=== PATIENT | male | born 1960 | race Caucasian/White ===

== ENCOUNTER 2016-11-03 12:23 | Inpatient (IN) ==
--- NOTE | 2016-11-03 13:30 | Emergency Department Note ---
Arrival - Arrival Chief Complaint: Non-Specific Stated Complaint: blood in urine &severe mouth pain ED Nursing Triage Note: pt to triage via wc with c/o having multi c/os. 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 onset of the hematuria was yesterday. just found out that he has HIV he was called over the phone from the health department and was told it was full blown but hasnt had an official report yet given to him. Mode of Arrival: Wheelchair Time Seen by Provider: 11/03/16 13:23 - History of Present Illness HPI Narrative: Patient presents to the ER with complaints of sores to mouth, blood in urine, headache, and chills. This patient was just diagnosed with "full blown HIV" two weeks ago. The family states they do not know his CD4 count and he was not given any antiviral medication. Family states he has progressively gotten sicker over the past week. PCP- Dr. Scales PMHx: Hep C, CVA Allergies/Adverse Reactions: Allergies Allergy/AdvReac Type Severity Reaction Status Date / Time No Known Allergies Allergy Verified 11/03/16 12:35 Home Medications: Home Medications Medication Instructions Recorded Confirmed Type Fluconazole Tab [Diflucan Tab] 100 mg PO DAILY #5 tablet 11/06/16 11/08/16 Rx HYDROcodone/ACETAMIN 10-325 [[place] 1 tablet PO Q4H PRN #30 tablet 11/06/1611/08 Rx 10-325] Lidocaine 2% Viscous [Xylocaine 2% 15 ml SWISH/SWAL Q6H #60 ml 11/06/16 Rx Viscous] Lisinopril 10 mg PO DAILY #30 tablet 11/06/16 11/08/16 Rx Nystatin [Nystatin Oral Susp] 200,000 unit SWISH/SWAL QID #60 ml 11/06/16 Rx Sulfameth/Trimeth 800-160 Tab 1 tablet PO DAILY #30 tablet 11/06/16 11/08/16 Rx [Bactrim DS Tab] Review of System - Review of System Review of Systems: General: reports chills, states sure if any fever, denies sweats, reports fatigue Skin: denies lesions, open wounds, rashes, skin/hair/nail changes Head: denies trauma, reports headache ENT: denies blurry vision, vision changes, nasal drainage, congestion, reports sore throat and ear pain/ringing Chest: denies chestpain, palpitations, or edema Lungs: denies wheezing, cough, SOB, sputum production, hemoptysis GI: denies nausea, vomiting, diarrhea, constipation, intigestion, or abdominal pain : denies frequency, dyuria, hesitancy, urgency, reports hematuria and incontinence Musculoskeletal: denies muscle weakness, pain, joint stiffness, joint swelling Neuro: denies numbness, tingling, tremors, unilateral weakness, seizures, syncope Medical,Surgical,& Family Hx - Medical History Cardio: History of: Hypertension Neurology: History of: Cerebrovascular Accident - Surgical History Orthopedic Surgeries: Surgical HX of;: Total Hip Replacement (3 left hip replacements) - Social History Smoking Status: Current every day smoker Frequency of Alcohol Use: None Type of Drug Use: None Exam Physical Examination: General [General appearance: alert, in no apparent distress] - Head Head exam: Present: atraumatic, normocephalic, normal inspection - Eye Eye exam: Present: normal appearance, PERRL, EOMI - ENT ENT exam: Present: abnormal, mouth and oropharynx covered in thrush, mucous membranes moist - Neck Neck exam: Present: normal inspection, full ROM, trachea midline - Chest Chest inspection: Present: normal inspection, symmetric chest wall rise - Respiratory Respiratory exam: Present: coarse lung sounds bilaterally - Cardiovascular Cardiovascular exam: Present: regular rate, normal rhythm, normal heart sounds - Abdominal Exam Abdominal exam: Present: soft, normal bowel sounds - Rectal Exam Rectal exam: Present: deferred - Extremities Exam Extremities exam: Present: normal inspection, full ROM, normal capillary refill - Back Exam Back exam: Present: normal inspection, full ROM - Neurological Exam Neurological exam: Present: alert, oriented X3, CN II-XII intact - Psychiatric Psychiatric exam: Present: normal affect, normal mood - Skin Skin exam: Present: warm, dry, intact, normal color, Vital Signs: Vital Signs Temperature 97.1 F L 11/06/16 11:19 Pulse Rate 75 11/06/16 11:19 Respiratory Rate 18 11/06/16 11:19 Blood Pressure 129/63 11/06/16 11:19 O2 Sat by Pulse Oximetry 93 L 11/06/16 11:19 Course - Reevaluation(s) Time: 15:25 (Spoke with family about possible admission. Voiced their understanding. Paged Hospitalist at [phone]) Time: 15:35 (Spoke with Hospitalist family and consumer sciences professor... they will come see patient ) Time: 15:52 (Hospitalist at ) Results - Labs CBC & BMP: 11/06/16 05:15 11/06/16 05:15 Labs: Laboratory Tests 11/03/16 13:47 Sodium 123 L Potassium 4.9 Chloride 87 L Carbon Dioxide 28 Anion Gap 12.9 BUN 15 Creatinine 0.60 L GFR Calculation 100 BUN/Creatinine Ratio 25.00 H Glucose 86 Calculated Osmolality 246.8 L Lactic Acid 0.9 Calcium 8.1 L Total Bilirubin < 0.39 AST 87 H ALT 42 Alkaline Phosphatase 117 Total Protein 7.1 Albumin 2.5 L Globulin 4.6 H Albumin/Globulin Ratio 0.5 L Laboratory Tests 11/03/16 12:47 Urine Color Yellow Urine Appearance Cloudy Urine pH 7.0 Ur Specific Fraser 1.012 Urine Protein 30 Urine Glucose (UA) Negative Urine Ketones Negative Urine Blood Moderate Urine Nitrate Negative Urine Bilirubin Negative Urine Urobilinogen < 2.0 H Urine Leukocytes Negative Urine RBC 92 Urine WBC 2 Urine Mucus Occasional Ur Culture Indicated? Not indicated Laboratory Tests 11/03/16 13:26 WBC 2.0 L RBC 3.17 L Hgb 9.8 L Hct 27.8 L MCV 87.7 MCH 31 MCHC 35.3 RDW 14.7 Plt Count 80 L MPV 10.2 Neut % (Auto) 69.5 Lymph % (Auto) 14.7 L Sullivan % (Auto) 10.8 Eos % (Auto) 2.0 Baso % (Auto) 0.5 Neut # (Auto) 1.4 Lymph # (Auto) 0.3 L Sullivan # (Auto) 0.2 Eos # (Auto) 0.0 Baso # (Auto) 0.0 Total Counted Cancelled Immature Gran % 2.5 Nucleated RBC % 0.0 Immature Gran # 0.05 - Impressions CT head without contrast Comparison exam: November 16, [address] sections were obtained through the head without IV contrast. This CT exam was performed using one or more the following dose reduction techniques: Automated exposure control, adjustment of the MA and/or KV according to patient size, or use of iterative reconstruction technique. The ventricles are midline in position without evidence of hydrocephalus. There is no mass or parenchymal hemorrhage. There is a 4 mm low-density in the mid left putamen compatible with lacunar ischemia which may be subacute or older. There is no gross CT evidence of acute cortical stroke. There is no extra-axial hematoma. There is a small amount mastoid effusion on the right. There is no acute abnormality of the calvarium. There is mild distal carotid artery calcification. Impression: No definite acute intracranial process. Small lacunar infarction left putamen which may be subacute or older, but which was not present in 2013 Small right mastoid effusion PROCEDURE INTERPRETED AT [facility] DEPARTMENT OF RADIOLOGY Final Report Signed by: Dr. Radha Gallegos XR chest 2V Indication: Fever Comparison: Chest x-ray dated September 10, 2011 Technique: Frontal and lateral views of the chest. Findings: Heart size within normal limits. Patchy left perihilar and suprahilar opacities may reflect early consolidative process such as pneumonia. Recommend follow-up imaging to document resolution and exclude underlying neoplasm. Visualized osseous and surrounding soft tissue structures appear grossly unchanged. IMPRESSION: As above. PROCEDURE INTERPRETED AT [facility] DEPARTMENT OF RADIOLOGY Final Report Signed by: Dr Hiro Pastor - Diagnostic Findings Procedure: CT: report reviewed by me (See Impression ) Disposition Clinical Impression: HIV (human immunodeficiency virus infection), Oral candidiasis, Abnormal chest x-ray Disposition: Still a Patient Condition: Stable New Prescriptions: Rx's Medication Instructions Recorded Fluconazole Tab [Diflucan Tab] 100 mg PO DAILY #5 tablet 11/06/16 HYDROcodone/ACETAMIN 10-325 [[place] 1 tablet PO Q4H PRN #30 tablet 11/06/16 10-325] Lidocaine 2% Viscous [Xylocaine 2% 15 ml SWISH/SWAL Q6H #60 ml 11/06/16 Viscous] Lisinopril 10 mg PO DAILY #30 tablet 11/06/16 Nystatin [Nystatin Oral Susp] 200,000 unit SWISH/SWAL QID #60 ml 11/06/16 Sulfameth/Trimeth 800-160 Tab 1 tablet PO DAILY #30 tablet 11/06/16 [Bactrim DS Tab]
--- NOTE | 2016-11-03 13:50 | CT Report ---
History: Headache. Immunocompromised. History of CVA Date: 11/03/2016 Study: CT head without contrast Comparison exam: November 16, [address] sections were obtained through the head without IV contrast. This CT exam was performed using one or more the following dose reduction techniques: Automated exposure control, adjustment of the MA and/or KV according to patient size, or use of iterative reconstruction technique. The ventricles are midline in position without evidence of hydrocephalus. There is no mass or parenchymal hemorrhage. There is a 4 mm low-density in the mid left putamen compatible with lacunar ischemia which may be subacute or older. There is no gross CT evidence of acute cortical stroke. There is no extra-axial hematoma. There is a small amount mastoid effusion on the right. There is no acute abnormality of the calvarium. There is mild distal carotid artery calcification. Impression: No definite acute intracranial process. Small lacunar infarction left putamen which may be subacute or older, but which was not present in 2013 Small right mastoid effusion PROCEDURE INTERPRETED AT [facility] DEPARTMENT OF RADIOLOGY Final Report Signed by: Dr. Radha Gallegos
[2016-11-03 14:25] LABS: Apearance,Urine CLOUDY (Clear); Bilirubin,Urine Negative (Negative); Blood, Urine Moderate mg/dL (Negative); Glucose,Urine (UA) Negative (Negative); Ketones,Urine Negative (Negative); Mucus,Urine Occasional /LPF (Occasional); Nitrite,Urine Negative (Negative); Protein,Urine 30 MG/DL; RBC,Urine 92 /HPF (0-4); Urine Color Yellow (Yellow); Urine Specific Gravity 1.012 (1.001-1.035); Urine Urobilinogen < 2.0 EU/DL (0.2-1.0); WBC,Urine 2 /HPF (0-6)
[2016-11-03 14:28] LABS: Alanine Aminotransferase 42 U/L (16-61); Albumin 2.5 G/DL (3.4-5.0); Alkaline Phosphatase 117 U/L (45-117); Aspartate Amino Transferase 87 U/L (0-37); Bilirubin,Total < 0.39 MG/DL (0.2-1.0); Blood Urea Nitrogen 15 MG/DL (7-18); Calcium 8.1 MG/DL (8.5-10.1); Glucose 86 MG/DL (74-106); Lactic Acid 0.9 MMOL/L (0.4-2.0); Osmolality,Calculated 246.8 MOS/KG (273-304); Potassium 4.9 MMOL/L (3.5-5.1); Sodium 123 MMOL/L (136-145); Total Protein 7.1 G/DL (6.4-8.3)
[2016-11-03] MEDS ORDERED: LIDOCAINE 2% VISCOUS 100 ML BOTTLE SWISH/SWAL STA (14:34)
[2016-11-03] MEDS ORDERED: NYSTATIN 500,000 UNIT/5 ML UDCUP SWISH/SWAL STA (14:34)
[2016-11-03] MEDS ORDERED: FLUCONAZOLE INJ 400 MG in PREMIX 1 EACH IV ONE (14:42)
[2016-11-03 14:44] LABS: Basophils % 0.5 % (0.0-0.8); Hematocrit 27.8 VOL% (42.0-52.0); Hemoglobin 9.8 GM/DL (14.0-18.0); Immature Granulocytes % 2.5 %; Immature Granulocytes Absolute 0.05 #; Lymphocytes # 0.3 10*3/uL (1.4-4.0); Lymphocytes % 14.7 % (21.2-54.2); Mean Corpuscular HGB Conc 35.3 GM/DL (32-36); Mean Corpuscular Hemoglobin 31 PG (27-34); Mean Corpuscular Volume 87.7 FL (87-102); Mean Platelet Volume 10.2 FL (9.6-12.0); Monocytes # 0.2 10*3/uL (0.11-0.8); Monocytes % 10.8 % (1.7-12.7); Neutrophils # 1.4 10*3/uL (1.4-7.4); Neutrophils % 69.5 % (38.7-73.9); Platelet Count 80 T/CUMM (130-400); Red Blood Count 3.17 MC/CUMM (3.8-5.5); Red Cell Distribution Width 14.7 % (9.3-17.3)
[2016-11-03] MEDS ORDERED: NYSTATIN 500,000 UNIT/5 ML UDCUP ONE (14:46)
[2016-11-03] MEDS ORDERED: LIDOCAINE 2% VISCOUS 100 ML BOTTLE ONE (14:47)
--- NOTE | 2016-11-03 15:11 | XRay Report ---
XR chest 2V Indication: Fever Comparison: Chest x-ray dated September 10, 2011 Technique: Frontal and lateral views of the chest. Findings: Heart size within normal limits. Patchy left perihilar and suprahilar opacities may reflect early consolidative process such as pneumonia. Recommend follow-up imaging to document resolution and exclude underlying neoplasm. Visualized osseous and surrounding soft tissue structures appear grossly unchanged. IMPRESSION: As above. PROCEDURE INTERPRETED AT [facility] DEPARTMENT OF RADIOLOGY Final Report Signed by: Dr Hiro Pastor
[2016-11-03] MEDS ORDERED: ALBUTEROL/IPRATROPIUM 3 ML NEB RESP TX PRN (16:14)
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
[2016-11-03 17:05] LABS: ABG Base Excess 4.5 MMOL/L (-2.5-2.5); ABG HCO3 28.4 MMOL/L (20-26); ABG PCO2 39.7 MM HG (35-48); ABG PH 7.473 (7.35-7.45); ABG PO2 77.5 MM HG (80-95); ABG TCO2 29.7 MMOL/L (23-27); Allen Test Positive; Pt O2 Delivery Device Room Air
[2016-11-03] MEDS: SODIUM CHLORIDE 0.9% 1,000 ML IV SCH (17:29)
[2016-11-03] MEDS: SULFAMETH/TRIMETH INJ 200 MG in DEXTROSE 5% 250 ML IV SCH ×2 (17:29→23:05)
[2016-11-03] MEDS: amLODIPine 5 MG TABLET PO SCH (17:30)
[2016-11-03] MEDS: PIPERACILLIN/TAZOBACTAM 3,375 MG in SODIUM CHLORIDE 0.9% 100 ML IV SCH (20:26)
[2016-11-03 22:19] LABS: Hepatitis A Ab IgM Result Negative (Negative); Hepatitis B Core IgM Quant 0.14 Index; Hepatitis B Core IgM Result Negative (Negative)
[2016-11-04 03:15] LABS: Eosinophils # 0.1 10*3/uL (0.0-0.87); Eosinophils % 3.2 % (0.00-10.9); Hematocrit 26.6 VOL% (42.0-52.0); Hemoglobin 9.5 GM/DL (14.0-18.0); Immature Granulocytes % 1.6 %; Immature Granulocytes Absolute 0.04 #; Lymphocytes # 0.3 10*3/uL (1.4-4.0); Lymphocytes % 10.8 % (21.2-54.2); Mean Corpuscular HGB Conc 35.7 GM/DL (32-36); Mean Corpuscular Hemoglobin 31 PG (27-34); Mean Corpuscular Volume 86.4 FL (87-102); Mean Platelet Volume 11.1 FL (9.6-12.0); Monocytes # 0.2 10*3/uL (0.11-0.8); Monocytes % 8.4 % (1.7-12.7); Neutrophils # 1.9 10*3/uL (1.4-7.4); Red Blood Count 3.08 MC/CUMM (3.8-5.5); Red Cell Distribution Width 14.8 % (9.3-17.3); White Blood Count 2.5 T/CUMM (4-12)
[2016-11-04] MEDS: PIPERACILLIN/TAZOBACTAM 3,375 MG in SODIUM CHLORIDE 0.9% 100 ML IV SCH ×2 (03:19→13:26)
[2016-11-04 03:20] LABS: Platelet Count 92 T/CUMM (130-400)
[2016-11-04] MEDS: SULFAMETH/TRIMETH INJ 200 MG in DEXTROSE 5% 250 ML IV SCH ×2 (03:37→09:14)
[2016-11-04 03:48] LABS: Albumin 2.1 G/DL (3.4-5.0); Bilirubin,Total 0.7 MG/DL (0.2-1.0); Calcium 7.8 MG/DL (8.5-10.1); Osmolality,Calculated 243.9 MOS/KG (273-304); Potassium 4.4 MMOL/L (3.5-5.1); Total Protein 5.9 G/DL (6.4-8.3)
[2016-11-04 04:09] LABS: Band Neutrophils 2 % (0-10); Eosinophils 4 % (0-10); Lymphocytes 4 % (20-55); Metamyelocytes 2 %; Myelocytes 1 %; Segmented Neutrophils 76 % (50-85); Total Cells Counted 100
[2016-11-04 04:15] LABS: Anisocytosis 2+; Microcytosis 2+
[2016-11-04 04:16] LABS: Hypochromasia 1+; Platelet Estimate Decreased
[2016-11-04 04:36] LABS: Hepatitis C Virus Ab Quant > 11.00 Index; Hepatitis C Virus Ab Result Positive (Negative)
[2016-11-04] MEDS: SODIUM CHLORIDE 0.9% 1,000 ML IV SCH ×3 (05:06→19:35)
[2016-11-04 05:41] LABS: Hepatitis C Virus Ab Quant > 11.00 Index; Hepatitis C Virus Ab Result Positive (Negative)
[2016-11-04 05:42] LABS: Hepatitis A Ab IgM Quant 0.04 Index
[2016-11-04] MEDS: ACETAMINOPHEN 325 MG TABLET PO PRN (06:51)
--- NOTE | 2016-11-04 08:45 | Post Interventional Procedure ---
Pre-op diagnosis: HIV, oral jeff, no PIV access Post-op diagnosis: same Procedure: PICC LUE Flouroscopy: 0.1 min Radiologist: Nathan Norwood Anesthesia: local Specimens: none sent Estimated blood loss: none Complications: none Condition: stable Assessment and Plan - Time spent with patient Time spent with patient: Less than 30 minutes
[2016-11-04] MEDS: amLODIPine 5 MG TABLET PO SCH (09:14)
[2016-11-04] MEDS: NICOTINE 21 MG/24 HR PATCH TRANSDERM SCH (10:44)
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
--- NOTE | 2016-11-04 10:54 | Interventional Radiology Rpt ---
IR PICC line insertion, US guide vascular access Indication: HIV, oral candidiasis, no peripheral IV access options. PICC LINE Description: A formal timeout was performed. Maximum sterile barrier technique was used. Sonographic evaluation of the left upper extremity demonstrates patent and compressible basilar vein. The upper arm was prepped and draped in sterile fashion. 3 cc 1% lidocaine was administered subcutaneously. Under sonographic guidance, a micropuncture needle was advanced into the vein. A captured sonographic image documents the position of the needle. Needle was exchanged over a wire for a peel-away sheath. A dual lumen power PICC, cut to 43 cm, was advanced over the wire until the tip was at the RA-SVC junction. The position of the catheter was confirmed with fluoroscopic guidance and an image stored in PACS. The wire and sheath were removed. Both ports of the PICC were aspirated and flushed with heparinized saline. The device was secured with a StatLock. Fluoroscopy: 0.1 minute. Impression: PICC line ready for immediate use. Routine catheter care. PROCEDURE INTERPRETED AT [facility] DEPARTMENT OF RADIOLOGY Final Report Signed by: Nathan Norwood M.D.
[2016-11-04] MEDS: LIDOCAINE 2% VISCOUS 100 ML BOTTLE SWISH/SWAL SCH ×3 (13:26→21:14)
--- NOTE | 2016-11-04 14:14 | Hospitalist Progress Note ---
Assessment and Plan (1) Pneumonia Status: Acute Assessment and plan: Continue Bactrim IV, continue Zosyn, sputum for afb, consult pulmonary and ID, start azithromycin for atypical. May need to change to other than zosyn due to pancytopenia, move to negative pressure room, cont duonebs Current Visit: Yes (2) Hematuria Status: Acute Assessment and plan: No recommendations offered by urology Current Visit: Yes (3) HIV (human immunodeficiency virus infection) Status: Acute Assessment and plan: CD4 and viral load pending Current Visit: Yes (4) Oral candidiasis Status: Acute Assessment and plan: Continue IV Diflucan. Current Visit: Yes (5) Hypertension Status: Acute Assessment and plan: Norvasc Current Visit: Yes (6) Failure to thrive Status: Acute Assessment and plan: Marinol for appetite and oral lidocaine for pain. Current Visit: Yes (7) Hyponatremia Status: Acute Assessment and plan: Increased normal saline up to 150 ML's per hour, urine osmole, serum osmole, urine sodium Current Visit: Yes (8) Elevated transaminase level Status: Acute Assessment and plan: Elevated liver enzymes due to hep C. Patient not a candidate for treatment at this time due to advanced HIV Current Visit: Yes (9) Pancytopenia Status: Acute Assessment and plan: may need to change zosyn, defer to Dr. Donis, check b12 and folate Current Visit: Yes Hospitalist: Subjective Interval history: I am concerned that patient may need respiratory isolation based on chest x- ray. Patient has suprahilar and perihilar infiltrates. Patient has HIV and possibly aids. He has not been on any HIV meds. Dr. Donis has been consulted. I will asked Dr. Ponce to become involved as we most likely will need [facility] to get sputum for AFB. As a precaution may need negative pressure isolation. PICC line today due to poor access. Patient reports severe mouth pain due to thrush and feels like pain extending down his throat. Will give him lidocaine, nicotine patch and norco. Exam - Constitutional Vitals: Period Temp Pulse Resp BP Sys/[place] Pulse Ox Last 24 Hr 97.2 F-98.4 F 76-88 18-20 123-164/70-99 94-100 Exam: Heart Rate-[RRR] Lungs-[rhonchi bilateral ] GI-[+bs soft, NT] Ext-[no edema] oral thrush and erythema Neuro [Motor 5/5], [alert and oriented times 3] psych [normal mood and affect] General [mild acute distress] Results - Labs CBC & BMP: 11/04/16 02:48 11/04/16 02:48 Lab Results: I have reviewed the past 24 hour labs Labs: Blood cultures pending, urine culture negative - Diagnostic Findings Procedure: Chest x-ray: report reviewed by me (Patchy left perihilar and suprahilar opacities)
[2016-11-04] MEDS ORDERED: FLUCONAZOLE INJ 200 MG in PREMIX 1 EACH IV SCH (15:00)
[2016-11-04] MEDS ORDERED: TUBERCULIN SKIN TEST 0.1 ML SYRINGE INTRADERM ONE (15:00)
--- NOTE | 2016-11-04 15:26 | Infectious Disease Consult ---
Assessment and Plan (1) HIV (human immunodeficiency virus infection) Status: Acute Assessment and plan: Given the weight loss and the presence of oral candidiasis patient most likely has advanced HIV disease. Recommendations: Will order baseline investigations including CD4 count, viral load, HIV genotype etc. Clinically I do not think the patient has pneumonia therefore I will stop high-dose Bactrim and instead put him on daily double strength Bactrim for PCP prophylaxis. The patient will need to see me in the office within 2 weeks for us to look at all of these results and get him started on antiretroviral therapy. Thank you very much for the consult. Will follow while he is here. Discussed with Dr. Grimm. Discussed with patient's daughter Current Visit: Yes (2) Oral candidiasis Status: Acute Assessment and plan: This is indicative of advanced immune suppression. Agree with fluconazole therapy however will decrease dose to 100 mg daily. Current Visit: Yes (3) Elevated transaminase level Status: Acute Assessment and plan: He has a history of hepatitis C apparently treated but we are not sure about whether or not treatment was successful. Hepatitis B surface antigen is equivocal so there is a possibility of chronic hepatitis B infection as well. Will check hepatitis C viral load as well as hepatitis B viral load. Current Visit: Yes (4) Pancytopenia Status: Acute Assessment and plan: Most likely due to advanced HIV infection. Expect pancytopenia to improve with HIV treatment. Current Visit: Yes (5) Abnormal chest x-ray Status: Acute Assessment and plan: Radiologist reported perihilar and suprahilar infiltrates however I did not appreciate rachael consolidation. Clinically I do not think the patient has pneumonia. Dr. Grimm was concerned about tuberculosis however with the absence of fever and significant infiltrates on the chest x-ray and also significant cough I think tuberculosis is less likely. Dr. Grimm has consulted Dr. Ponce and I will see what his thoughts are. If he agrees that the patient is likely to have TB than the patient can be taken out of airborne isolation. Because I do not think the patient has pneumonia and certainly, coming from the community , this would not be any resistant gram-negative organism, therefore I will stop the Zosyn. For now I will leave the azithromycin until he seen by Dr. Ponce. As noted above, he will be given PCP prophylaxis rather than treatment for active PCP infection. Current Visit: Yes History of Present Illness Chief complaint: Newly diagnosed HIV History of present illness: Mr. Braun is a 55 year old male who has a past history of IV drug abuse and hepatitis C. He says the hepatitis C was treated some years ago in [place] and he was told that treatment was successful. He was doing relatively okay until several weeks ago when he developed worsening soreness of his mouth. He got to the point where he had difficulty eating and so he went to his doctor and had an HIV test done and it came back positive. The soreness in the mouth is still worsening and so he decided to come to the hospital. He was found to have oral candidiasis. He has not yet been linked to care for his HIV and so I am asked to see him about getting started on treatment. Patient thinks he got HIV from a girlfriend sometime ago. He has not injected drugs for many years. Time the symptoms he reports dry cough on and off for several weeks. No pleuritic chest pain; he does have some exertional dyspnea. He has not had any fever night sweats chills. He says he is also 50 pounds over the past 2 months. No vomiting no diarrhea. No rash. Home Medications Medication Instructions Recorded Confirmed Type Lisinopril 20 mg PO DAILY 11/03/16 11/03/16 History Allergies Allergy/AdvReac Type Severity Reaction Status Date / Time No Known Allergies Allergy Verified 11/03/16 12:35 12 point system: reviewed and no additional remarkable complaints except as stated (Hematuria present, rest of complaints and review of systems as per HPI) Medical,Surgical,& Family Hx - Medical History Cardio: History of: Hypertension Neurology: History of: Cerebrovascular Accident Other: History of: Miscellaneous Medical Problems (hiv) - Surgical History Orthopedic Surgeries: Surgical HX of;: Orthopedic Surgery, Total Hip Replacement (3 left hip replacements) - Family History Family History: Reports;: Family Cancer, Family Heart Disease, Additional Family History (mom had hepatitis c) - Social History Smoking Status: Current every day smoker Frequency of Alcohol Use: None Type of Drug Use: None Infectious Disease Exam H&P - Constitutional Vitals: Vital Signs Temp Pulse Resp BP Pulse Ox 97.7 F 82 20 123/70 96 11/04/16 11:28 11/04/16 11:28 11/04/16 11:28 11/04/16 11:28 11/04/16 11:28 Intake and Output 11/03/16 11/04/16 11/04/16 23:59 07:59 15:59 Intake Total 942.5 / 942.5 0 / 0 262.5 / 262.5 Output Total 650 / 650 200 / 200 Balance 292.5 / 292.5 -200 / -200 262.5 / 262.5 Intake: IV 462.5 / 462.5 0 / 0 262.5 / 262.5 Diflucan Inj 400 mg In 200 / 200 Premix 1 Each @ 100 mls/ hr IV ONCE ONE Rx#: [id number] Zosyn 3,375 mg In Ns 100 0 / 0 ml @ 25 mls/hr IV Q8H SINGH Rx#:[id number] Bactrim Inj 200 mg In D5 262.5 / 262.5 262.5 / 262.5 250 ml @ 167 mls/hr IV Q6H SINGH Rx#:[id number] Oral 480 / 480 Output: Urine 650 / 650 200 / 200 Other: Voiding Method Urinal Weight 55.111 kg Exam: General: Patient chronically ill-looking, he is a bit thin but not cachectic HEENT: Mucous membranes pale pink and moist, anicteric acyanotic, MANI, he has diffuse erythema of the oropharynx and some whitish exudates to the left bucca mucosa, dentition is very poor Neck: Supple, no thyroid gland enlargement, no lymphadenopathy Respiratory system: Breath sounds vesicular, no crepitations or wheezes Cardiovascular: Normal S1 and S2, no murmurs appreciated Abdomen: Normal bowel sounds, soft nontender throughout, no organomegaly or mass Genitourinary: No suprapubic pain or bladder distention Extremities: no edema Skin: No rash Reports - Labs CBC & BMP: 11/04/16 02:48 11/04/16 02:48 Labs: Laboratory Results - last 24 hr 11/03/16 11/03/16 11/04/16 16:32 17:20 02:48 WBC 2.5 L RBC 3.08 L Hgb 9.5 L Hct 26.6 L MCV 86.4 L MCH 31 MCHC 35.7 RDW 14.8 Plt Count 92 L MPV 11.1 Neut % (Auto) 76.0 H Lymph % (Auto) 10.8 L [place] % (Auto) 8.4 Eos % (Auto) 3.2 Baso % (Auto) 0.0 Neut # (Auto) 1.9 Lymph # (Auto) 0.3 L [place] # (Auto) 0.2 Eos # (Auto) 0.1 Baso # (Auto) 0.0 Total Counted 100 Immature Gran % 1.6 Nucleated RBC % 0.0 Immature Gran # 0.04 Segmented Neutrophils 76 Band Neutrophils 2 Lymphocytes 4 L Monocytes 11 Eosinophils 4 Metamyelocytes 2 Myelocytes 1 Nucleated RBCs # 0.00 Platelet Estimate Decreased Hypochromasia 1+ Anisocytosis 2+ Microcytosis 2+ ABG pH 7.473 H ABG pCO2 39.7 ABG pO2 77.5 L ABG HCO3 28.4 H ABG Total CO2 29.7 H ABG O2 Saturation 96.0 ABG Base Excess 4.5 H FiO2 21.00 Sodium Potassium Chloride Carbon Dioxide Anion Gap BUN Creatinine GFR Calculation BUN/Creatinine Ratio Glucose Calculated Osmolality Calcium Total Bilirubin AST ALT Alkaline Phosphatase Total Protein Albumin Globulin Albumin/Globulin Ratio Hepatitis A IgM Ab Negative Hep Bs Antigen Equivocal Hep B Core IgM Ab Negative Hepatitis C Antibody Positive A 11/04/16 11/04/16 02:48 02:48 WBC RBC Hgb Hct MCV MCH MCHC RDW Plt Count MPV Neut % (Auto) Lymph % (Auto) [place] % (Auto) Eos % (Auto) Baso % (Auto) Neut # (Auto) Lymph # (Auto) [place] # (Auto) Eos # (Auto) Baso # (Auto) Total Counted Immature Gran % Nucleated RBC % Immature Gran # Segmented Neutrophils Band Neutrophils Lymphocytes Monocytes Eosinophils Metamyelocytes Myelocytes Nucleated RBCs # Platelet Estimate Hypochromasia Anisocytosis Microcytosis ABG pH ABG pCO2 ABG pO2 ABG HCO3 ABG Total CO2 ABG O2 Saturation ABG Base Excess FiO2 Sodium 122 L Potassium 4.4 Chloride 86 L Carbon Dioxide 26 Anion Gap 14.4 BUN 12 Creatinine 0.50 L GFR Calculation 113 BUN/Creatinine Ratio 24.00 H Glucose 88 Calculated Osmolality 243.9 L Calcium 7.8 L Total Bilirubin 0.70 AST 78 H ALT 35 Alkaline Phosphatase 88 Total Protein 5.9 L Albumin 2.1 L Globulin 3.8 H Albumin/Globulin Ratio 0.5 L Hepatitis A IgM Ab Hep Bs Antigen Hep B Core IgM Ab Hepatitis C Antibody Positive A - Reports Microbiology: Microbiology 11/03/16 14:13 Blood Culture - Preliminary Blood No growth at 1 day 11/03/16 12:47 Urine Culture - Preliminary Urine,Clean Catch No Growth at 24 hours. - Diagnostic Findings Procedure: Chest x-ray: image reviewed by me, report reviewed by me (No consolidation appreciated, no effusions)
[2016-11-04 17:21] LABS: Hepatitis B Surface Ab Result Negative
[2016-11-04] MEDS: DRONABINOL 2.5 MG CAPSULE PO SCH ×2 (17:37→21:14)
[2016-11-04] MEDS: AZITHROMYCIN INJ 500 MG in SODIUM CHLORIDE 0.9% 250 ML IV SCH (17:38)
--- NOTE | 2016-11-04 17:48 | Pulmonology Consult Note ---
History of Present Illness Chief complaint: Possible pneumonia. HIV positive. Oral Alesia History of present illness: Mr. Braun is a 55 year old white male whom I been asked to see in pulmonary consultation. This patient said he found out approximately 2 weeks ago that he is HIV positive. He has had weight loss. He complains of pain in his mouth and pain with swallowing. It turns out that he has oral candidiasis. He denies any hemoptysis. He says when he coughs she produces some sputum. He has not looked at the character but he does say it is sticky. The patient also complains of hematuria. The patient complains of weakness. There is been no true syncope. I get no history of cardiac angina. He complains of a 60 pound weight loss since April 2016 The remainder the review of systems is Allergies. None Home medicines. See below Hospital medicines. See below. Past history. Patient said he had adult respiratory distress syndrome 5 or 6 years ago secondary to black mold. He said he got this where he lived. Disabled. About 25 years ago this patient used IV drugs. He said that he got HIV from an old girlfriend. He told me that he only found out that he was HIV positive 2 weeks ago. He has had 3 left total hip replacements. High blood pressure Social history. Smokes about a pack every day. Denies ALCOHOL. Past history of IV drug abuse. Says the drug abuse was 25 years ago. Has known exposure to someone who is HIV positive. Family history. Positive for heart disease and cancer. Chest x-ray. 11/03/2016 mild hyperinflation. No heart failure. Possible very early perihilar infiltrates bilaterally. CT of the head. Small lacunar infarct in the left putamen which the radiologist said may be subacute or older. It was not present 2013. Microbiology. No positive cultures reported. ABGs on room air. PH is 7.47. PCO2 is 39.7. PO2 77.5. Bicarb is 28.4 Lab. White count is 2576 segs and 11 lymphs, 2 metamyelocytes and 1 myelocyte. H&H is 9.5/26.6. Platelets are 92,000. Sodium is low at 122. Potassium 4.4. Admit creatinine was 0.60 with a BUN of 15. Urine showed red blood cells. There was a small amount of protein present. Alkaline Tha is normal. There is a mild elevation of AST. ALT is normal and total bilirubin is 0.70. Serology shows the patient is positive for hepatitis C antibody. Hepatitis B surface antigen region is equivocal Physical exam. Vital signs. See below General. Appears acutely and chronically ill. Face is symmetrical. Tongue is coated with Alesia Neck is symmetrical with no meningismus. Chest. Clear Heart no gallop Lower extremities no edema. The rest of the physical exam is negative Impression. 1. HIV positive 2. Hepatitis C antibody positive. 3. Possible early bilateral perihilar infiltrates based on the chest x-ray done 11/03/2016. Follow-up x-ray has been ordered but pending also pro calcitonin is pending 4. Tobacco abuse 5. History of high blood pressure 6. Weight loss almost certainly secondary to #1 and complications of #1 such as oral candidiasis 7. Oral candidiasis 8. Small lacunar infarct left putamen. Age undetermined. Has occurred since 2013 9. Hyponatremia 10. Hypoxemia 11. Hypocalcemia. Possibly related to low albumin. Plan. 1. Repeat chest x-ray. Done 11/04/2016. I do not see any definite infiltrates. 2. Pro calcitonin level 3. Cortrosyn stimulation test 4. Follow-up chest x-ray tomorrow. 5. Cold agglutinins 6. Legionella titer 7. Sputum for Gram stain culture and sensitive Home Medications Medication Instructions Recorded Confirmed Type Lisinopril 20 mg PO DAILY 11/03/16 11/03/16 History Allergies Allergy/AdvReac Type Severity Reaction Status Date / Time No Known Allergies Allergy Verified 11/03/16 12:35 Exam (Pulmonay) H&P - Constitutional Vitals: Period Temp Pulse Resp BP Sys/Valencia Pulse Ox Last 24 Hr 97.2 F-98.4 F 77-88 18-20 123-156/70-98 94-100 Medical,Surgical,& Family Hx - Medical History Cardio: History of: Hypertension Neurology: History of: Cerebrovascular Accident Other: History of: Miscellaneous Medical Problems (hiv) - Surgical History Orthopedic Surgeries: Surgical HX of;: Orthopedic Surgery, Total Hip Replacement (3 left hip replacements) - Family History Family History: Reports;: Family Cancer, Family Heart Disease, Additional Family History (mom had hepatitis c) - Social History Smoking Status: Current every day smoker Frequency of Alcohol Use: None Type of Drug Use: None Results - Labs CBC & BMP: 11/04/16 02:48 11/04/16 02:48
--- NOTE | 2016-11-04 18:43 | XRay Report ---
History: Pneumonia Date: 11/04/2016 Study: Chest x-ray AP portable Comparison exam: 11/03/2016 The left PICC line is well-positioned. The cardiomediastinal silhouette and pulmonary vasculature are unremarkable without change. The lungs are well-expanded and clear without confluent infiltrate. There is no gross pleural effusion. Osseous structures are unremarkable. Impression: No evidence of an acute cardiopulmonary process. Left PICC line PROCEDURE INTERPRETED AT [facility] DEPARTMENT OF RADIOLOGY Final Report Signed by: Dr. Radha Gallegos
[2016-11-04] MEDS: FLUCONAZOLE INJ 100 MG in PREMIX 1 EACH IV SCH (18:48)
[2016-11-04] MEDS: ONDANSETRON 4 MG/2 ML VIAL IV PRN (19:54)
[2016-11-05] MEDS: SODIUM CHLORIDE 0.9% 1,000 ML IV SCH ×4 (01:45→21:21)
[2016-11-05] MEDS: LIDOCAINE 2% VISCOUS 100 ML BOTTLE SWISH/SWAL SCH ×4 (04:05→21:21)
[2016-11-05 04:15] LABS: Basophils % 0.6 % (0.0-0.8); Eosinophils # 0.1 10*3/uL (0.0-0.87); Eosinophils % 3.5 % (0.00-10.9); Hematocrit 23.9 VOL% (42.0-52.0); Hemoglobin 8.3 GM/DL (14.0-18.0); Immature Granulocytes % 2.4 %; Immature Granulocytes Absolute 0.04 #; Lymphocytes # 0.2 10*3/uL (1.4-4.0); Lymphocytes % 13.5 % (21.2-54.2); Mean Corpuscular HGB Conc 34.7 GM/DL (32-36); Mean Corpuscular Hemoglobin 31 PG (27-34); Mean Corpuscular Volume 88.5 FL (87-102); Mean Platelet Volume 10.6 FL (9.6-12.0); Monocytes # 0.1 10*3/uL (0.11-0.8); Monocytes % 6.5 % (1.7-12.7); Neutrophils # 1.3 10*3/uL (1.4-7.4); Neutrophils % 73.5 % (38.7-73.9); Red Cell Distribution Width 15.3 % (9.3-17.3)
[2016-11-05 04:16] LABS: Platelet Count 59 T/CUMM (130-400); White Blood Count 1.7 T/CUMM (4-12)
[2016-11-05 04:40] LABS: Alanine Aminotransferase 31 U/L (16-61); Albumin 1.7 G/DL (3.4-5.0); Alkaline Phosphatase 72 U/L (45-117); Aspartate Amino Transferase 74 U/L (0-37); Bilirubin,Total < 0.39 MG/DL (0.2-1.0); Blood Urea Nitrogen 12 MG/DL (7-18); Calcium 6.3 MG/DL (8.5-10.1); Glucose 78 MG/DL (74-106); Osmolality,Calculated 256.9 MOS/KG (273-304); Sodium 129 MMOL/L (136-145); Total Protein 4.9 G/DL (6.4-8.3)
[2016-11-05 04:50] LABS: Band Neutrophils 4 % (0-10); Lymphocytes 11 % (20-55); Metamyelocytes 1 %; Segmented Neutrophils 79 % (50-85); Total Cells Counted 100
[2016-11-05 04:51] LABS: Anisocytosis 1+; Platelet Estimate Decreased
--- NOTE | 2016-11-05 05:38 | Pulmonology Progress Note ---
Pulmonary - PN: Subj Interval history: This is a 55-year-old white male. I saw him in pulmonary consultation on the night of 11/04/2016. My impressions were. 1. HIV positive 2. Hepatitis C antibody positive. 3. Possible early bilateral perihilar infiltrates based on the chest x-ray done 11/03/2016. Follow-up x-ray has been ordered but pending also pro calcitonin is pending 4. Tobacco abuse 5. History of high blood pressure 6. Weight loss almost certainly secondary to #1 and complications of #1 such as oral candidiasis 7. Oral candidiasis 8. Small lacunar infarct left putamen. Age undetermined. Has occurred since 2013 9. Hyponatremia 10. Hypoxemia 11. Hypocalcemia. Possibly related to low albumin. 11/05/2016. Patient had an uneventful night. Today's follow-up chest x-ray shows slight increase in interstitial markings inferior to both hilar areas. There is no clear-cut infiltrate but will repeat the x-ray tomorrow in case something develops. I do not see any background changes that look like pneumocystis. I have ordered a LDH which is usually significantly elevated in the face of pneumocystis infection. As far as a bacterial infection is concerned a pro calcitonin was ordered but is not yet been reported. White blood cell count is 1700. H&H is decreased 8.3/23.9 and platelets of dropped to 59,000. Sodium is up to 129. A Cortrosyn stimulation test was ordered. Pending. Creatinine is 0.50 with a BUN of 12. Protein and albumin are low at 4.9 and 1.7 respectively. I see nothing on the patient's chest x-ray to suggest pulmonary tuberculosis. Sputum's are pending. I doubt QuantiFERON will be helpful. Physical exam. Vital signs. See below Oriented 3. General. Appears acutely and chronically ill. Head eyes ears nose and throat. Severe oral candidiasis Chest. Relatively clear Heart no gallop Abdomen nondistended Extremities no edema Neck. No meningismus. The remainder of the physical exam is negative. Plan. 11/04/2016 1. Repeat chest x-ray. Done 11/04/2016. I do not see any definite infiltrates. 2. Pro calcitonin level 3. Cortrosyn stimulation test 4. Follow-up chest x-ray tomorrow. 5. Cold agglutinins 6. Legionella titer 7. Sputum for Gram stain culture and sensitive 11/05/2016. 1. See today's note above. 2. Pro calcitonin is pending 3. LDH is pending 4. Cortrosyn stimulation test 5. Cold agglutinins Legionella titer pending. 6. Follow-up chest x-rays. 7. Check microbiology which is negative so far Exam (Progress Note) - Constitutional Vitals: Period Temp Pulse Resp BP Sys/Valencia Pulse Ox Last 24 Hr 97.2 F-98.7 F 69-88 11-22 102-153/66-99 96-99 Results - Labs CBC & BMP: 11/05/16 03:55 11/05/16 03:55
--- NOTE | 2016-11-05 06:50 | XRay Report ---
XR chest 1V portable Indication: Pneumonia Comparison: Chest x-ray 11/04/2016 Technique: Portable AP chest was performed. Findings: Parenchymal opacity right cardiophrenic angle has increased since comparison study which may reflect worsening atelectasis given the timeframe of comparison. Lungs otherwise are clear. Bones and soft tissues are stable. Chest otherwise demonstrates little change. Impression: 1. Increased parenchymal opacities in the right cardiophrenic angle may reflect atelectasis given the timeframe for comparison. Worsening infectious process is not excluded given history of pneumonia. 11/05/2016 6:47 AM PROCEDURE INTERPRETED AT [facility] DEPARTMENT OF RADIOLOGY Final Report Signed by: Dr. Hemanth Au
[2016-11-05] MEDS ORDERED: COSYNTROPIN 0.25 MG VIAL IV ONE (08:00)
--- NOTE | 2016-11-05 08:02 | Hospitalist Progress Note ---
Assessment and Plan (1) HIV (human immunodeficiency virus infection) Status: Acute Assessment and plan: CD4 and viral load pending, cont bactrim and azithromycin for prophylaxis, updated patients daughter Current Visit: Yes (2) Pneumonia Status: Acute Assessment and plan: Abx discontinued. will remove from list Current Visit: Yes (3) Hematuria Status: Acute Assessment and plan: No recommendations offered by urology Current Visit: Yes (4) Oral candidiasis Status: Acute Assessment and plan: cont IV diflucan, oral nystatin added, lidocaine swish and swallow Current Visit: Yes (5) Hypertension Status: Acute Assessment and plan: Norvasc Current Visit: Yes (6) Failure to thrive Status: Acute Assessment and plan: Marinol for appetite and oral lidocaine for pain. Current Visit: Yes (7) Hyponatremia Status: Acute Assessment and plan: SIADH, free water restriction, cont ns for now Current Visit: Yes (8) Elevated transaminase level Status: Acute Assessment and plan: Elevated liver enzymes due to hep C. Patient not a candidate for treatment at this time due to advanced HIV Current Visit: Yes (9) Pancytopenia Status: Acute Assessment and plan: worse today, due to immune suppression from HIV Current Visit: Yes Hospitalist: Subjective Interval history: Thanks for all the help with him. Nice sudhir but bad situation. Will discontinue isolation as he does not have pneumonia per Dr. Donis or Dr. Ponce. Exam - Constitutional Vitals: Period Temp Pulse Resp BP Sys/Valencia Pulse Ox Last 24 Hr 97.3 F-98.7 F 69-87 11-22 102-153/66-99 96-99 Exam: Heart Rate-[RRR] Lungs-[clear with coughing] GI-[+bs soft, NT] Ext-[no edema] oral thrush and erythema better Neuro [Motor 5/5], [alert and oriented times 3] psych [normal mood and affect] General no acute distress] Results - Labs CBC & BMP: 11/05/16 03:55 11/05/16 03:55 Lab Results: I have reviewed the past 24 hour labs Labs: blood cx times 2 negative, urine cx negative - Diagnostic Findings Procedure: Chest x-ray: report reviewed by me (atelectasis )
[2016-11-05] MEDS: SULFAMETHOX/TRIMETHOPRIM 800-160 MG TABLET PO SCH (08:19)
[2016-11-05] MEDS: amLODIPine 5 MG TABLET PO SCH (08:19)
[2016-11-05] MEDS: DRONABINOL 2.5 MG CAPSULE PO SCH ×2 (08:19→21:15)
[2016-11-05] MEDS: NICOTINE 21 MG/24 HR PATCH TRANSDERM SCH (08:19)
[2016-11-05] MEDS: NYSTATIN 500,000 UNIT/5 ML UDCUP SWISH/SWAL SCH ×4 (09:23→21:19)
--- NOTE | 2016-11-05 10:40 | Infectious Disease Progress ---
Assessment and Plan (1) HIV (human immunodeficiency virus infection) Status: Acute Assessment and plan: Given the weight loss and the presence of oral candidiasis patient most likely has advanced HIV disease - AIDS. Recommendations: All baseline labs are pending. Patient seems okay to go home anytime after now when I can see him in the office in about a week and a half by which time his results should be ready and I can start him on antiretroviral therapy then. Current Visit: Yes (2) Oral candidiasis Status: Acute Assessment and plan: Significantly improved thus will continue with fluconazole therapy however will decrease dose to 100 mg daily. Current Visit: Yes (3) Elevated transaminase level Status: Acute Assessment and plan: Hep C viral load is pending and will order hepatitis B viral load. Current Visit: Yes (4) Pancytopenia Status: Acute Assessment and plan: Most likely due to advanced HIV infection. Expect pancytopenia to improve with HIV treatment. Current Visit: Yes (5) Abnormal chest x-ray Status: Acute Assessment and plan: Dr. Ponce of pulmonary saw patient and agreed that the chest x-ray was not very impressive for pneumonia. He, like me, did not think patient had TB and patient 's a bone isolation has been discontinued. The sputum cultures positive but likely from colonization as a Gram stain with was negative with no significant white blood cells. Recommendations: We can stop the azithromycin when patient gets discharged and he can go on PCP prophylaxis with Bactrim double strength 1 tablet daily. Treatment of the gram-negative rods in the sputum not indicated. Current Visit: Yes Infectious Disease - PN: Subj Interval history: Patient definitely feeling better today, the soreness of the mouth and he was able to eat for breakfast today. He has not had fever. No significant cough. No diarrhea. Infectious Disease Exam (PN) - Constitutional Vitals: Temp Pulse Resp BP Pulse Ox 98.7 F 82 16 145/88 97 11/05/16 04:00 11/05/16 06:00 11/05/16 06:00 11/05/16 06:00 11/05/16 06:00 General appearance: under weight, disheveled Exam: General appearance: no acute distress, looks better than yesterday - Eye Eye exam: Present: EOMI. no icterus Pupils: Present: MANI - ENT ENT exam: Resolved whitish exudates on bucca mucosa, less erythema of the oral mucosa - Respiratory Respiratory exam: vesicular BS, no crepitations or wheezes - Cardiovascular Cardiovascular exam: regular rate and rhythm, no murmurs - GI/Abdominal GI/Abdominal exam: normal bowel sounds, soft, non-tender, no organomegaly or mass - Extremities Exam Extremities exam: no edema - Skin Skin exam: no rash Results - Labs CBC & BMP: 11/05/16 03:55 11/05/16 03:55 Lab Results: I have reviewed the past 24 hour labs (Sputum growing gram- negative rods however the Gram stain was negative including less than 25 white blood cells per high-power field)
[2016-11-05] MEDS: AZITHROMYCIN INJ 500 MG in SODIUM CHLORIDE 0.9% 250 ML IV SCH (14:44)
[2016-11-05] MEDS: ACETAMINOPHEN 325 MG TABLET PO PRN (14:45)
[2016-11-05] MEDS: FLUCONAZOLE INJ 100 MG in PREMIX 1 EACH IV SCH (16:47)
[2016-11-05] MEDS: ONDANSETRON 4 MG/2 ML VIAL IV PRN (21:11)
[2016-11-06] MEDS: SODIUM CHLORIDE 0.9% 1,000 ML IV SCH ×2 (04:05→13:43)
[2016-11-06] MEDS: LIDOCAINE 2% VISCOUS 100 ML BOTTLE SWISH/SWAL SCH ×2 (04:40→09:20)
[2016-11-06 05:54] LABS: Basophils % 0.5 % (0.0-0.8); Eosinophils # 0.1 10*3/uL (0.0-0.87); Eosinophils % 2.5 % (0.00-10.9); Hematocrit 25.4 VOL% (42.0-52.0); Hemoglobin 8.9 GM/DL (14.0-18.0); Immature Granulocytes % 1.5 %; Immature Granulocytes Absolute 0.03 #; Lymphocytes # 0.3 10*3/uL (1.4-4.0); Lymphocytes % 13.2 % (21.2-54.2); Mean Corpuscular Hemoglobin 31 PG (27-34); Mean Corpuscular Volume 87.3 FL (87-102); Mean Platelet Volume 10.6 FL (9.6-12.0); Monocytes # 0.1 10*3/uL (0.11-0.8); Monocytes % 6.1 % (1.7-12.7); Neutrophils # 1.5 10*3/uL (1.4-7.4); Neutrophils % 76.2 % (38.7-73.9); Red Blood Count 2.91 MC/CUMM (3.8-5.5); Red Cell Distribution Width 15.5 % (9.3-17.3)
[2016-11-06 05:59] LABS: Platelet Count 61 T/CUMM (130-400)
[2016-11-06 06:18] LABS: Alanine Aminotransferase 30 U/L (16-61); Albumin 1.9 G/DL (3.4-5.0); Alkaline Phosphatase 72 U/L (45-117); Aspartate Amino Transferase 64 U/L (0-37); Bilirubin,Total < 0.39 MG/DL (0.2-1.0); Blood Urea Nitrogen 11 MG/DL (7-18); Calcium 6.7 MG/DL (8.5-10.1); Glucose 76 MG/DL (74-106); Osmolality,Calculated 255.9 MOS/KG (273-304); Potassium 4.1 MMOL/L (3.5-5.1); Sodium 129 MMOL/L (136-145); Total Protein 5.3 G/DL (6.4-8.3)
--- NOTE | 2016-11-06 07:35 | XRay Report ---
Portable chest. Indication: Cough. HIV positive. Comparison: Yesterday's exam. The heart is normal in size. The pulmonary vasculature is normal. There is worsening infiltrate present in the right lung base, now with partial obscuration of the right hemidiaphragm. I suspect some additional in interstitial infiltrate in the left lung base. No pneumothorax. No pleural effusion. PICC line is in satisfactory position. Impression: Worsening right basilar infiltrate. Suspected additional interstitial infiltrate in the left base. PROCEDURE INTERPRETED AT [facility] DEPARTMENT OF RADIOLOGY Final Report Signed by: Dr. Chastity eDvlin
[2016-11-06 08:13] LABS: Band Neutrophils 1 % (0-10); Hypochromasia Slight; Lymphocytes 10 % (20-55); Platelet Estimate Decreased; Segmented Neutrophils 84 % (50-85); Total Cells Counted 100
[2016-11-06] MEDS: SULFAMETHOX/TRIMETHOPRIM 800-160 MG TABLET PO SCH (08:41)
[2016-11-06] MEDS: DRONABINOL 2.5 MG CAPSULE PO SCH (08:41)
[2016-11-06] MEDS: amLODIPine 5 MG TABLET PO SCH (08:42)
[2016-11-06] MEDS: NICOTINE 21 MG/24 HR PATCH TRANSDERM SCH (08:45)
[2016-11-06] MEDS: NYSTATIN 500,000 UNIT/5 ML UDCUP SWISH/SWAL SCH ×2 (08:47→13:43)
--- NOTE | 2016-11-06 09:09 | Discharge Summary ---
<Daniela Frazier - Last Filed: 11/06/16 08:52> Hospital Course - Hospital Course Hospital Course: Mr. Braun is a 55 year old male with past medical history significant for hypertension but was recently told he has HIV and Hepatitis C presented to the ED difficulty swallowing and SOB. Patient has lost about about 60 lbs due to not eating and hematuria. He has extensive yeast in his mouth and was started on nystatin, lidocaine S&S and diflucan. Dr. Donis was consulted because his CXR was read as pneumonia and he was started on zosyn, azithromycin and bactrim IV. Both Dr. Donis and Dr. Ponce felt he did not have pneumonia and his antibiotics were discontinued. Urology was consulted for hematuria but did not offer any recommendations other than treat the HIV. His CD4 count, viral load, and HIV genotype are pending. Dr. Donis will follow him in her clinic and start him on HIV meds when these levels are available. He will be discharged only on bactrim for prophylaxis. Patients sodium was low on admission but improved with NS. He has siadh needs to have strict free water restriction. Discharge Plan - Discharge Data Disposition: Home Health Service - Discharge Medications New Fluconazole Tab [Diflucan Tab] 100 mg PO DAILY #5 tablet HYDROcodone/ACETAMIN 10-325 [[place] 10-325] 1 tablet PO Q4H PRN #30 tablet PRN Reason: Pain Moderate (4-7) Lidocaine 2% Viscous [Xylocaine 2% Viscous] 15 ml SWISH/SWAL Q6H #60 ml Nystatin [Nystatin Oral Susp] 200,000 unit SWISH/SWAL QID #60 ml Sulfameth/Trimeth 800-160 Tab [Bactrim DS Tab] 1 tablet PO DAILY #30 tablet Changed Lisinopril 10 mg PO DAILY #30 tablet - Follow Up or Referral Follow Up: Maxine Carrion MD [Physician] - 1 Week - Forms/Instructions Exam - Constitutional Vitals: Period Temp Pulse Resp BP Sys/[place] Pulse Ox Last 24 Hr 96.7 F-98.0 F 71-92 18-20 124-148/66-91 90-97 Discharge Results Procedures and tests throughout hospitalization: Pending Orders 11/03/16 Blood Culture Stat 11/04/16 14:09 HIV-1 RNA Quantification, P Stat 11/04/16 15:29 QuantiFERON-TB Gold In-Tube, B Routine 11/04/16 15:44 Legionella Ag, Urine Routine 11/04/16 16:12 HIV-1 Genotyp UT-RT Inhib Drug Routine HIV-1 Integrase Genotype Routine Hepatitis C RNA Detect/Quant Routine Toxoplasma gondi Ab, IgG,S Routine 11/04/16 16:30 Procalcitonin, S Stat 11/04/16 18:55 AFB Culture/Smears Stat Sputum Culture and Gram Stain Routine 11/05/16 10:40 AFB Culture/Smears 11/05/16 12:39 Hepatitis C RNA Detect/Quant Routine Hepatitis C Virus Genotype, S Routine 11/07/16 04:00 CMP [Comprehensive Metabolic Panel] IN AM Comp Blood Count Auto Diff IN AM 11/08/16 04:00 CMP [Comprehensive Metabolic Panel] IN AM Labs on day of discharge: Labs from last 24 hours 11/06/16 11/06/16 11/05/16 05:15 05:15 03:55 WBC 2.0 L RBC 2.91 L Hgb 8.9 L Hct 25.4 L MCV 87.3 MCH 31 MCHC 35.0 RDW 15.5 Plt Count 61 L MPV 10.6 Neut % (Auto) 76.2 H Lymph % (Auto) 13.2 L Leon % (Auto) 6.1 Eos % (Auto) 2.5 Baso % (Auto) 0.5 Neut # (Auto) 1.5 Lymph # (Auto) 0.3 L Leon # (Auto) 0.1 L Eos # (Auto) 0.1 Baso # (Auto) 0.0 Total Counted 100 Immature Gran % 1.5 Nucleated RBC % 0.0 Immature Gran # 0.03 Segmented Neutrophils 84 Band Neutrophils 1 Lymphocytes 10 L Monocytes 5 Nucleated RBCs # 0.00 Platelet Estimate Decreased Hypochromasia Slight Sodium 129 L Potassium 4.1 Chloride 99 Carbon Dioxide 23 Anion Gap 11.1 BUN 11 Creatinine 0.50 L GFR Calculation 113 BUN/Creatinine Ratio 22.00 H Glucose 76 Calculated Osmolality 255.9 L Calcium 6.7 L Total Bilirubin < 0.39 AST 64 H ALT 30 Alkaline Phosphatase 72 Total Protein 5.3 L Albumin 1.9 L Globulin 3.4 Albumin/Globulin Ratio 0.5 L Cortisol Response % CD3 Cells Absolute CD3 Count % CD4 Cells Absolute CD4 [place] T-Help/Suppress Ratio % CD8 Cells Absolute CD8 Count CD45+ Count 11/03/16 13:26 WBC RBC Hgb Hct MCV MCH MCHC RDW Plt Count MPV Neut % (Auto) Lymph % (Auto) Leon % (Auto) Eos % (Auto) Baso % (Auto) Neut # (Auto) Lymph # (Auto) Leon # (Auto) Eos # (Auto) Baso # (Auto) Total Counted Immature Gran % Nucleated RBC % Immature Gran # Segmented Neutrophils Band Neutrophils Lymphocytes Monocytes Nucleated RBCs # Platelet Estimate Hypochromasia Sodium Potassium Chloride Carbon Dioxide Anion Gap BUN Creatinine GFR Calculation BUN/Creatinine Ratio Glucose Calculated Osmolality Calcium Total Bilirubin AST ALT Alkaline Phosphatase Total Protein Albumin Globulin Albumin/Globulin Ratio Cortisol Response % CD3 Cells 65 Absolute CD3 Count 159 L % CD4 Cells 4 L Absolute CD4 [place] 11 L T-Help/Suppress Ratio 0.1 L % CD8 Cells 56 H Absolute CD8 Count 138 CD45+ Count 0.25 L Preliminary micro results at discharge 11/04/16 18:55 Sputum Culture - Preliminary Sputum Gram Negative Rods 11/03/16 Unknown Blood Culture - Preliminary Blood No growth at 1 day 11/03/16 14:13 Blood Culture - Preliminary Blood No growth at 1 day DS: Provider Date of admission: 11/03/16 15:44 Primary care physician: Jeffry Scales MD Attending physician on admission: Nathan August MD Consults: 11/03/16 16:14 Consult to Physician [CONS] Routine Comment: hematuria Consulting Provider: Shakir Daly Consult to Specialist Group: Urology Person Notified: JUDI Date Notified: 11/04/16 Time Notified: 09:00 Consult to Physician [CONS] Routine Comment: new HIV Patient maybe full blown aids Consulting Provider: Maxine Carrion Person Notified: Carmelita Date Notified: 11/04/16 Time Notified: 08:57 11/03/16 16:18 Consult to Case Mgmt/Social Srvs [CONS] Routine Reason for Case Mgmt/Social Srvs: Discharge Planning Consult Comment: aids patient 11/03/16 17:54 Consult to Dietitian [CONS] Routine Reason for Dietitian: Other Consult Comment: wt loss, sore mouth with difficulty eating 11/04/16 14:09 Consult to Physician [CONS] Routine Comment: need sputum for afb in patient with aids Consulting Provider: Eddie Ponce When should Consulting Provider be notified: Now Person Notified: IRISH Date Notified: 11/04/16 Time Notified: 14:25 11/05/16 10:57 Consult to Case Mgmt/Social Srvs [CONS] Routine Reason for Case Mgmt/Social Srvs: Home Health Consult Comment: for med compliance Discharging clinician: Daniela Frazier NP <Luiza Grimm Last Filed: 11/06/16 11:01> Hospital Course - Time spent with patient Time with patient DS: Greater than 30 minutes (35 in) Diagnosis - Discharge Diagnosis (1) HIV (human immunodeficiency virus infection) Status: Acute (2) Pneumonia Status: Acute (3) Hematuria Status: Acute (4) Oral candidiasis Status: Acute (5) Hypertension Status: Acute (6) Failure to thrive Status: Acute (7) Hyponatremia Status: Acute (8) Elevated transaminase level Status: Acute (9) Pancytopenia Status: Acute Discharge Plan - Discharge Data Condition at Discharge: Stable Discharge Diet: regular diet Activity: resume usual activities as tolerated Hygiene: no restrictions Weight Bearing at Discharge: full weight bearing Driving: not until seen by doctor - Forms/Instructions Additional Discharge Instructions: must not drink more than 1500 ml of water including soda and other liquids in a 24 hours period. Exam - Constitutional General appearance: no acute distress, under weight - Respiratory Respiratory exam: Present: clear to auscultation bilaterally. Absent: rhonchi, wheezes - Cardiovascular Cardiovascular exam: Present: regular rate and rhythm. Absent: systolic murmur - GI/Abdominal GI/Abdominal exam: Present: normal bowel sounds. Absent: tenderness, soft - Neurological Exam Neurological exam: Present: alert, oriented X3, reflexes normal. Absent: motor sensory deficit - Psychiatric Psychiatric exam: Present: normal affect, normal mood
[2016-11-06 09:33] LABS: % CD4 (T Cells) 4 % (32-64); % CD8 (T Cells) 56 % (11-40); 4/8 Ratio 0.1 (>=0.9)
[2016-11-06 11:20] VITALS: BP 129/63
[2016-11-06 13:11] LABS: Toxoplasma IgG Value < 3 IU/mL
[2016-11-07 12:59] LABS: Hepatitis C RNA Detect/Quant 3380000 IU/mL (Undetected)
[2016-11-09 06:07] LABS: Hepatitis B Surface Ag Result Equivocal (Negative)
[2016-11-10 09:51] LABS: Hepatitis C RNA Detect/Quant 3850000 IU/mL (Undetected)
[2016-11-10 13:02] LABS: HIV-1 Genotypic PR-RT Drug Res INTERP; Tipranavir + Ritonavir SUSC
== END 2016-11-06 15:02 | disposition home health service (06) | DRG 975 ==
LOC: N.ED 12:23 → N.5E 15:44 → SUATTDRO 15:44 → N.5E 16:47 → N.CC 11-04 15:05 → N.5E 11-05 13:20
PROVIDERS: ADMIT Internal Medicine; ATTEND Internal Medicine

== ENCOUNTER 2016-11-08 12:12 | Inpatient (IN) ==
[2016-11-08] MEDS ORDERED: ONDANSETRON 4 MG/2 ML VIAL IV PRN (13:12)
[2016-11-08] MEDS ORDERED: FLUCONAZOLE INJ 200 MG in PREMIX 1 EACH IV SCH (18:00)
--- NOTE | 2016-11-08 18:06 | Hospitalist History & Physical ---
Assessment and Plan (1) Bacteremia Status: Acute Assessment and plan: We will obtain baseline labs and blood cultures. We will start empiric antibiotic coverage. Infectious disease has been consulted and is aware of the patient's admission. Current Visit: Yes (2) HIV (human immunodeficiency virus infection) Status: Acute Assessment and plan: During the previous admission, HIV viral load was noted at 154,000 and hepatitis C RNA was noted at 555043. The patient was discharged with Bactrim prophylactically. No antiretrovirals was started at the time of discharge. Infectious disease has been notified to evaluate and assist with the management of the patient during the clinical encounter. Current Visit: No (3) Thrombocytopenia Status: Acute Assessment and plan: Platelet count was noted at 54 at the time of admission. No obvious signs of bleeding noted. Will monitor carefully. Current Visit: Yes (4) Leukopenia Status: Acute Current Visit: Yes (5) Leukopenia Status: Acute Assessment and plan: WBCs are noted at 1.1. We will start neutropenic precautions. Will recheck labs in a.m. Infectious disease consultation requested. Current Visit: Yes History of Present Illness Chief complaint: Bacteremia History of present illness: This is a chronically ill 55-year-old male that presented to [facility] as a direct admission under the advice Dr. Maxine Harris for the evaluation of bacteremia. Patient has a very complex and extensive medical history significant for: Human immunodeficiency virus, thrombocytopenia, hypertension, hepatitis C virus, chronic anemia, cerebrovascular accident,nicotine addiction, and pneumonia. She has a surgical history significant for multiple left hip replacements. The patient was recently discharged from [facility] for a recent diagnosis of oral Alesia. The patient was treated with multiple anti-biotic agents. In addition the patient was also noted to have severe hyponatremia in which his sodium was noted to be at 122 at the time of the previous admission. The patient was carefully rehydrated and the deficit was corrected. The patient had been instructed to restrict his fluid intake to less than 2 L each day. During the previous hospitalization blood cultures were obtained, however the results are not received until after the patient had been discharged. The blood cultures were positive for yeast. During the previous clinical encounter , the patient was followed closely by infectious diseases. The infectious disease doctor Dr. Maxine Carrion was not notified of the patient's positive blood culture. The home health care agency assigned to the patient was notified and the patient was instructed to present to [facility] for further evaluation. The patient's condition was discussed with both Dr. Peter Harris and Dr. Kapoor. The patient will be admitted to the hospitalist services for continuation of care. We will consult infectious disease to evaluate and assist during the clinical encounter. Home medications have been reviewed and reconciled. CODE STATUS has been discussed; the patient is a FULL CODE. Home Medications Medication Instructions Recorded Confirmed Type Fluconazole Tab [Diflucan Tab] 100 mg PO DAILY #5 tablet 11/06/16 11/08/16 Rx HYDROcodone/ACETAMIN 10-325 [[place] 1 tablet PO Q4H PRN #30 tablet 11/06/1611/08 Rx 10-325] Lidocaine 2% Viscous [Xylocaine 2% 15 ml SWISH/SWAL Q6H #60 ml 11/06/16 Rx Viscous] Lisinopril 10 mg PO DAILY #30 tablet 11/06/16 11/08/16 Rx Nystatin [Nystatin Oral Susp] 200,000 unit SWISH/SWAL QID #60 ml 11/06/16 Rx Sulfameth/Trimeth 800-160 Tab 1 tablet PO DAILY #30 tablet 11/06/16 11/08/16 Rx [Bactrim DS Tab] Allergies Allergy/AdvReac Type Severity Reaction Status Date / Time No Known Allergies Allergy Verified 11/03/16 12:35 Medical,Surgical,& Family Hx - Medical History Cardio: History of: Hypertension Neurology: History of: Cerebrovascular Accident Other: History of: Miscellaneous Medical Problems (hiv) - Surgical History Orthopedic Surgeries: Surgical HX of;: Orthopedic Surgery, Total Hip Replacement (3 left hip replacements) - Family History Family History: Reports;: Family Cancer, Family Heart Disease - Social History Smoking Status: Current every day smoker 12 point system: reviewed and no additional remarkable complaints except as stated Exam - Constitutional General appearance: cachectic - Head Head exam: Present: normal inspection, normocephalic, atraumatic - Eye Eye exam: Present: EOMI, conjunctival injection. Absent: nystagmus Pupils: Present: MANI, normal accommodation - ENT ENT exam: Present: normal exam. Absent: normal external ear exam, normal oropharynx - Neck Neck exam: Present: normal inspection. Absent: lymphadenopathy, meningismus, tenderness, thyromegaly - Respiratory Respiratory exam: Present: decreased breath sounds. Absent: rales, rhonchi, stridor, wheezes - Cardiovascular Cardiovascular exam: Present: regular rate and rhythm. Absent: carotid bruit, diastolic murmur, gallop, JVD, rubs, systolic murmur - GI/Abdominal GI/Abdominal exam: Present: normal bowel sounds, soft - Extremities Exam Extremities exam: Present: normal inspection, normal capillary refill, full ROM. Absent: edema - Back Exam Back exam: Present: normal inspection - Neurological Exam Neurological exam: Present: alert, oriented X3, CN II-XII intact - Psychiatric Psychiatric exam: Present: normal affect, normal mood - Skin Skin exam: Present: normal color, warm, dry Results - Labs CBC & BMP: 11/08/16 18:16 Lab Results: I have reviewed the past 24 hour labs
[2016-11-08 18:32] LABS: Basophils % 0.9 % (0.0-0.8); Eosinophils % 2.8 % (0.00-10.9); Hematocrit 24.9 VOL% (42.0-52.0); Hemoglobin 8.9 GM/DL (14.0-18.0); Immature Granulocytes % 3.7 %; Immature Granulocytes Absolute 0.04 #; Lymphocytes # 0.2 10*3/uL (1.4-4.0); Lymphocytes % 21.3 % (21.2-54.2); Mean Corpuscular HGB Conc 35.7 GM/DL (32-36); Mean Corpuscular Hemoglobin 31 PG (27-34); Mean Platelet Volume 11.3 FL (9.6-12.0); Monocytes # 0.1 10*3/uL (0.11-0.8); Monocytes % 11.1 % (1.7-12.7); Neutrophils # 0.7 10*3/uL (1.4-7.4); Neutrophils % 60.2 % (38.7-73.9); Platelet Count 54 T/CUMM (130-400); Red Blood Count 2.83 MC/CUMM (3.8-5.5); Red Cell Distribution Width 15.9 % (9.3-17.3); White Blood Count 1.1 T/CUMM (4-12)
[2016-11-08 19:06] LABS: Calcium 7.3 MG/DL (8.5-10.1); Magnesium 1.5 MG/DL (1.8-2.4); Osmolality,Calculated 249.6 MOS/KG (273-304); Potassium 3.8 MMOL/L (3.5-5.1)
[2016-11-08 19:37] LABS: Barbiturates Screen,Urine Negative (Negative); Benzodiazepines Screen,Urine Negative (Negative); Cannabinoid Screen,Urine Positive (Negative); Opiate Screen,Urine Positive (Negative); Phencyclidine Screen,Urine Negative (Negative)
[2016-11-08 20:17] LABS: Lymphocytes 25 % (20-55); Platelet Estimate Decreased; Segmented Neutrophils 71 % (50-85); Total Cells Counted 100
--- NOTE | 2016-11-08 20:21 | XRay Report ---
2 view chest. Indication: Shortness of breath. Comparison: November 06, 2016. The heart is normal in size. The pulmonary vasculature is normal. There is interval improvement in the basilar infiltrates, with mild interstitial abnormality persisting. No pneumothorax. No pleural effusion. Stable osseous structures. Impression: Chronic lung changes. Improving basilar pneumonia. Mild interstitial prominence persists. PROCEDURE INTERPRETED AT [facility] DEPARTMENT OF RADIOLOGY Final Report Signed by: Dr. Chastity Devlin
[2016-11-08 20:32] LABS: Apearance,Urine CLEAR (Clear); Bilirubin,Urine Negative (Negative); Blood, Urine Negative (Negative); Glucose,Urine (UA) Negative (Negative); Hyaline Casts,Urine 1 /LPF (0-3); Ketones,Urine Negative (Negative); Nitrite,Urine Negative (Negative); Protein,Urine 100 MG/DL; RBC,Urine 2 /HPF (0-4); Squamous Epithelial Cell,Urine Occasional /HPF (0-10); Urine Color Yellow (Yellow); Urine Specific Gravity 1.015 (1.001-1.035); WBC,Urine 2 /HPF (0-6)
[2016-11-08] MEDS: SODIUM CHLORIDE 0.9% 1,000 ML IV SCH ×2 (21:17)
[2016-11-08] MEDS: MEROPENEM 500 MG in SODIUM CHLORIDE 0.9% 100 ML IV SCH (21:18)
[2016-11-08] MEDS: LIDOCAINE 2% VISCOUS 100 ML BOTTLE SWISH/SWAL SCH (21:22)
[2016-11-08] MEDS: NYSTATIN 500,000 UNIT/5 ML UDCUP SWISH/SWAL SCH (21:25)
[2016-11-08] MEDS: PIPERACILLIN/TAZOBACTAM 3,375 MG in SODIUM CHLORIDE 0.9% 100 ML IV SCH (21:26)
[2016-11-09] MEDS: PIPERACILLIN/TAZOBACTAM 3,375 MG in SODIUM CHLORIDE 0.9% 100 ML IV SCH ×2 (04:37→14:18)
[2016-11-09] MEDS: LIDOCAINE 2% VISCOUS 100 ML BOTTLE SWISH/SWAL SCH ×4 (04:38→23:32)
[2016-11-09] MEDS: SODIUM CHLORIDE 0.9% 1,000 ML IV SCH ×3 (04:38→21:30)
--- NOTE | 2016-11-09 07:11 | XRay Report ---
Exam: XR chest 1V portable Indication: Shortness of breath Comparison study: 11/08/2016 chest radiograph Findings: There is been development of mild perihilar interstitial opacities, which may represent developing interstitial edema. The heart, mediastinum and bony structures otherwise appear stable from prior. There is no focal consolidation, pneumothorax or pleural effusion identified. Impression: Findings suggesting interval development of perihilar atelectasis and/or mild interstitial edema. PROCEDURE INTERPRETED AT [facility] DEPARTMENT OF RADIOLOGY Final Report Signed by: Avel Hernandez
[2016-11-09 07:19] LABS: Eosinophils % 1.7 % (0.00-10.9); Hematocrit 24.4 VOL% (42.0-52.0); Hemoglobin 8.6 GM/DL (14.0-18.0); Immature Granulocytes % 2.3 %; Immature Granulocytes Absolute 0.04 #; Lymphocytes # 0.3 10*3/uL (1.4-4.0); Lymphocytes % 18.4 % (21.2-54.2); Mean Corpuscular HGB Conc 35.2 GM/DL (32-36); Mean Corpuscular Hemoglobin 31 PG (27-34); Mean Corpuscular Volume 87.5 FL (87-102); Mean Platelet Volume 11.9 FL (9.6-12.0); Monocytes # 0.2 10*3/uL (0.11-0.8); Monocytes % 8.6 % (1.7-12.7); Neutrophils # 1.2 10*3/uL (1.4-7.4); Platelet Count 59 T/CUMM (130-400); Red Blood Count 2.79 MC/CUMM (3.8-5.5); Red Cell Distribution Width 15.8 % (9.3-17.3); White Blood Count 1.7 T/CUMM (4-12)
--- NOTE | 2016-11-09 07:41 | EKG Report ---
Stationary ECG Study [facility] Test Date: 11/09/2016 7:22:49 AM Pat Name: ROMEO BRAY Department: Room: 539 Gender: M Dry Cleaner Helper: MILLI : 1960 Requested by: Sahra Gunn Order Number: [id number] Reading MD: DRAGAN BEDOLLA Intervals Call Rate: 78 P: 69 NH: 141 QRS: 71 QRSD: 85 T: 74 QT: 359 QTc: 393 Interpretive Statements SINUS RHYTHM NH WP NST Electronically Signed On 11-09-16 08:34:56 CDT by DRAGAN BEDOLLA [email or web address]
[2016-11-09 07:43] LABS: Hypochromasia 2+; Lymphocytes 20 % (20-55); Microcytosis 1+; Platelet Estimate Decreased; Segmented Neutrophils 75 % (50-85); Total Cells Counted 100
[2016-11-09 07:46] LABS: Alanine Aminotransferase 27 U/L (16-61); Albumin 1.8 G/DL (3.4-5.0); Alkaline Phosphatase 110 U/L (45-117); Aspartate Amino Transferase 63 U/L (0-37); Bilirubin,Total < 0.39 MG/DL (0.2-1.0); Blood Urea Nitrogen 14 MG/DL (7-18); Calcium 7.2 MG/DL (8.5-10.1); Glucose 87 MG/DL (74-106); Magnesium 1.5 MG/DL (1.8-2.4); Osmolality,Calculated 254.2 MOS/KG (273-304); Phosphorous 3.2 MG/DL (2.5-4.9); Potassium 4.6 MMOL/L (3.5-5.1); Sodium 127 MMOL/L (136-145); Total Protein 5.2 G/DL (6.4-8.3)
--- NOTE | 2016-11-09 09:15 | Hospitalist Progress Note ---
Assessment and Plan (1) HIV (human immunodeficiency virus infection) Status: Chronic Assessment and plan: Associated hepatitis C with pancytopenia, recent hospitalization with positive blood culture for yeast. Ongoing substance abuse. Current Visit: No Hospitalist: Subjective Interval history: 55-year-old male HIV positive recently discharged from the hospital with abnormal chest x-ray. He was seen by infectious disease at that time treated with Zosyn and azithromycin and Bactrim intravenously. His sputum was positive for E. coli broadly sensitive. The radiographic changes were felt to be chronic and antibiotics were discontinued without adverse events. He was placed on pneumocystis prophylaxis at discharge with follow-up arranged. He presented from infectious disease office after blood cultures from earlier in the month returned with a positive yeast. Patient's complaint this morning and some shortness of breath he is on supplemental oxygen. The patient has pancytopenia with history of hepatitis C with high quantitative RNA viral load and his urine drug screen last evening was positive for opiates and amphetamines and cannabinoids.. Chronic hyponatremia with very low colloid oncotic pressure have been chronically present and have been stable. His vitals overnight have been stable he is afebrile. Exam - Constitutional Vitals: Period Temp Pulse Resp BP Sys/[place] Pulse Ox Last 24 Hr 97.3 F-99.9 F 70-92 16-20 101-125/57-69 90-93 General appearance: normal weight, no acute distress - Respiratory Respiratory exam: Present: clear to auscultation bilaterally. Absent: rales, rhonchi, wheezes - Cardiovascular Cardiovascular exam: Present: regular rate and rhythm. Absent: diastolic murmur - GI/Abdominal GI/Abdominal exam: Present: normal bowel sounds. Absent: organomegaly, tenderness - Extremities Exam Extremities exam: Absent: edema - Neurological Exam Neurological exam: Present: alert, oriented X3 - Psychiatric Psychiatric exam: Present: depressed Results - Labs CBC & BMP: 11/09/16 06:44 11/09/16 06:44 Labs: Albumin 1.8 Magnesium 1.5 - Diagnostic Findings Procedure: Chest x-ray: image reviewed by me (Fullness at the hilum left greater than right coarse interstitial markings.)
--- NOTE | 2016-11-09 10:24 | Post Interventional Procedure ---
Pre-op diagnosis: HIV, candidiasis, no PIV Post-op diagnosis: same Procedure: PICC LUE Flouroscopy: 0.1 min Radiologist: Nathan Norwood Anesthesia: local Specimens: none sent Estimated blood loss: none Complications: none Condition: stable Assessment and Plan - Time spent with patient Time spent with patient: Less than 30 minutes
[2016-11-09] MEDS: NYSTATIN 500,000 UNIT/5 ML UDCUP SWISH/SWAL SCH ×4 (11:20→23:26)
[2016-11-09] MEDS: PANTOPRAZOLE 40 MG TABLET PO SCH (11:20)
[2016-11-09] MEDS: MEROPENEM 500 MG in SODIUM CHLORIDE 0.9% 100 ML IV SCH (11:21)
[2016-11-09] MEDS: LISINOPRIL 20 MG TABLET PO SCH (11:21)
[2016-11-09] MEDS: SULFAMETHOX/TRIMETHOPRIM 800-160 MG TABLET PO SCH (12:18)
--- NOTE | 2016-11-09 13:12 | Interventional Radiology Rpt ---
IR PICC line insertion, US guide vascular access Indication: HIV, fungemia, candidiasis, limited peripheral IV access. PICC LINE Description: A formal timeout was performed. Maximum sterile barrier technique was used. Sonographic evaluation of the left upper extremity demonstrates patent and compressible basilar vein. The upper arm was prepped and draped in sterile fashion. 3 cc 1% lidocaine was administered subcutaneously. Under sonographic guidance, a micropuncture needle was advanced into the vein. A captured sonographic image documents the position of the needle. Needle was exchanged over a wire for a peel-away sheath. A dual lumen power PICC, cut to 40 cm, was advanced over the wire until the tip was at the RA-SVC junction. The position of the catheter was confirmed with fluoroscopic guidance and an image stored in PACS. The wire and sheath were removed. Both ports of the PICC were aspirated and flushed with heparinized saline. The device was secured with a StatLock. Fluoroscopy: 0.1 minutes, one captured fluoroscopic image. Impression: PICC line ready for immediate use. Routine catheter care. PROCEDURE INTERPRETED AT [facility] DEPARTMENT OF RADIOLOGY Final Report Signed by: Nathan Norwood M.D.
--- NOTE | 2016-11-09 17:36 | Infectious Disease Consult ---
Assessment and Plan (1) AIDS Status: Acute Assessment and plan: AIDS with profound immune suppression CD4 count is only 11 and viral load is almost 500,000. Recommendations: 1. Bactrim 1 double strength tablet daily for PCP prophylaxis 2. Add azithromycin 1200 mg weekly for MAC prophylaxis 3. Discontinue meropenem and Zosyn as no evidence of pneumonia Current Visit: Yes (2) Disseminated cryptococcosis Status: Acute Assessment and plan: Given blood positive for cryptococcus we need to make sure he does not also have cryptococcal meningitis which can be subclinical in patients with profound immune suppression. Recommendations: 1. Lumbar puncture with spinal fluid sent for cryptococcal antigen and along with cell count and other routine tests 2. Discontinue fluconazole 3. Start amphotericin B 0.7 mg/kg daily 3. Monitor electrolytes including magnesium on amphotericin Thank you very much for the consult. Will follow. Current Visit: Yes (3) Oral candidiasis Status: Acute Assessment and plan: Much improved. Patient will be on amphotericin which will cover candidiasis. Current Visit: No History of Present Illness Chief complaint: Yeast on blood culture History of present illness: Mr. Braun is a 55 year old male who was recently in hospital having been recently diagnosed with AIDS. He was admitted for dysphagia and found to have severe oral candidiasis. He went home and was to follow-up in the office for definitive treatment of his HIV however his blood culture came back positive for yeast and so he was called back in for admission and further evaluation. Patient has not had any fever, he denies headache or dizziness. He admits to using illicit drugs specifically crystal meth and also marijuana. He denies current injection drug use but has used in the past many years ago. Home Medications Medication Instructions Recorded Confirmed Type Fluconazole Tab [Diflucan Tab] 100 mg PO DAILY #5 tablet 11/06/16 11/08/16 Rx HYDROcodone/ACETAMIN 10-325 [[place] 1 tablet PO Q4H PRN #30 tablet 11/06/1611/08 Rx 10-325] Lidocaine 2% Viscous [Xylocaine 2% 15 ml SWISH/SWAL Q6H #60 ml 11/06/16 Rx Viscous] Lisinopril 10 mg PO DAILY #30 tablet 11/06/16 11/08/16 Rx Nystatin [Nystatin Oral Susp] 200,000 unit SWISH/SWAL QID #60 ml 11/06/16 Rx Sulfameth/Trimeth 800-160 Tab 1 tablet PO DAILY #30 tablet 11/06/16 11/08/16 Rx [Bactrim DS Tab] Allergies Allergy/AdvReac Type Severity Reaction Status Date / Time No Known Allergies Allergy Verified 11/03/16 12:35 12 point system: reviewed and no additional remarkable complaints except as stated (Improved soreness to mouth but not completely resolved. Rest of comprehensive review of system is as per HPI) Medical,Surgical,& Family Hx - Medical History Cardio: History of: Hypertension Psychological: History of: Depression Neurology: History of: Cerebrovascular Accident Gastrointestinal: History of: Hepatitis Other: History of: HIV, Miscellaneous Medical Problems (hiv) - Surgical History Orthopedic Surgeries: Surgical HX of;: Orthopedic Surgery, Total Hip Replacement (3 left hip replacements) - Family History Family History: Reports;: Family Cancer, Family Heart Disease - Social History Smoking Status: Current every day smoker Frequency of Alcohol Use: None Type of Drug Use: None Infectious Disease Exam H&P - Constitutional Vitals: Vital Signs Temp Pulse Resp BP Pulse Ox 98.6 F 61 16 154/82 98 11/09/16 16:00 11/09/16 16:00 11/09/16 16:00 11/09/16 16:00 11/09/16 16:00 Intake and Output 11/09/16 11/09/16 11/09/16 07:59 15:59 23:59 Intake Total 100 / 100 340 / 340 Output Total 300 / 300 Balance 100 / 100 40 / 40 Intake: IV 100 / 100 100 / 100 Zosyn 3,375 mg In Ns 100 100 / 100 100 / 100 ml @ 25 mls/hr IV Q8H [facility] Rx#:[id number] Oral 240 / 240 Output: Urine 300 / 300 Other: Voiding Method Brief Toilet # Voids 1 # Bowel Movements 2 Exam: General: Patient relatively comfortable HEENT: Mucous membranes pink and moist, anicteric acyanotic, MANI, diffuse erythema of mouth but no exudates or ulcerations Neck: Supple, no thyroid gland enlargement Respiratory system: Breath sounds vesicular, no crepitations or wheezes Cardiovascular: Normal S1 and S2, no murmurs appreciated Abdomen: Normal bowel sounds, soft nontender throughout, no organomegaly or mass Genitourinary: No suprapubic pain or bladder distention Extremities: no edema Skin: No rash Reports - Labs CBC & BMP: 11/09/16 06:44 11/09/16 06:44 Labs: Laboratory Results - last 24 hr 11/08/16 11/08/16 11/08/16 18:16 18:16 18:30 WBC 1.1 L D RBC 2.83 L Hgb 8.9 L Hct 24.9 L MCV 88.0 MCH 31 MCHC 35.7 RDW 15.9 Plt Count 54 L MPV 11.3 Neut % (Auto) 60.2 Lymph % (Auto) 21.3 [place] % (Auto) 11.1 Eos % (Auto) 2.8 Baso % (Auto) 0.9 H Neut # (Auto) 0.7 L Lymph # (Auto) 0.2 L [place] # (Auto) 0.1 L Eos # (Auto) 0.0 Baso # (Auto) 0.0 Total Counted 100 Immature Gran % 3.7 Nucleated RBC % 0.0 Immature Gran # 0.04 Segmented Neutrophils 71 Lymphocytes 25 Monocytes 4 Nucleated RBCs # 0.00 Platelet Estimate Decreased Hypochromasia Microcytosis Sodium 124 L Potassium 3.8 Chloride 92 L Carbon Dioxide 23 Anion Gap 12.8 BUN 12 Creatinine 0.70 GFR Calculation 97 BUN/Creatinine Ratio 17.00 Glucose 119 H Calculated Osmolality 249.6 L Calcium 7.3 L Phosphorus Magnesium 1.5 L Total Bilirubin AST ALT Alkaline Phosphatase Total Protein Albumin Globulin Albumin/Globulin Ratio Urine Color Urine Appearance Urine pH Ur Specific [place] Urine Protein Urine Glucose (UA) Urine Ketones Urine Blood Urine Nitrate Urine Bilirubin Urine Urobilinogen Urine Leukocytes Urine RBC Urine WBC Ur Squamous Epith Cells Hyaline Casts Ur Culture Indicated? Urine Opiates Screen Positive H Ur Barbiturates Screen Negative Ur Phencyclidine Scrn Negative U Amphetamine/Methamph Positive H U Benzodiazepines Scrn Negative U Cocaine Metab Screen Negative U Cannabinoids Screen Positive H 11/08/16 11/09/16 11/09/16 18:50 06:44 06:44 WBC 1.7 L D RBC 2.79 L Hgb 8.6 L Hct 24.4 L MCV 87.5 MCH 31 MCHC 35.2 RDW 15.8 Plt Count 59 L MPV 11.9 Neut % (Auto) 69.0 Lymph % (Auto) 18.4 L [place] % (Auto) 8.6 Eos % (Auto) 1.7 Baso % (Auto) 0.0 Neut # (Auto) 1.2 L Lymph # (Auto) 0.3 L [place] # (Auto) 0.2 Eos # (Auto) 0.0 Baso # (Auto) 0.0 Total Counted 100 Immature Gran % 2.3 Nucleated RBC % 0.0 Immature Gran # 0.04 Segmented Neutrophils 75 Lymphocytes 20 Monocytes 5 Nucleated RBCs # 0.00 Platelet Estimate Decreased Hypochromasia 2+ Microcytosis 1+ Sodium 127 L Potassium 4.6 Chloride 93 L Carbon Dioxide 25 Anion Gap 13.6 BUN 14 Creatinine 0.70 GFR Calculation 97 BUN/Creatinine Ratio 20.00 Glucose 87 Calculated Osmolality 254.2 L Calcium 7.2 L Phosphorus 3.2 Magnesium 1.5 L Total Bilirubin < 0.39 AST 63 H ALT 27 Alkaline Phosphatase 110 Total Protein 5.2 L Albumin 1.8 L Globulin 3.4 Albumin/Globulin Ratio 0.5 L Urine Color Yellow Urine Appearance Clear Urine pH 6.0 Ur Specific [place] 1.015 Urine Protein 100 Urine Glucose (UA) Negative Urine Ketones Negative Urine Blood Negative Urine Nitrate Negative Urine Bilirubin Negative Urine Urobilinogen 4.0 H Urine Leukocytes Negative Urine RBC 2 Urine WBC 2 Ur Squamous Epith Cells Occasional Hyaline Casts 1 Ur Culture Indicated? Not indicated Urine Opiates Screen Ur Barbiturates Screen Ur Phencyclidine Scrn U Amphetamine/Methamph U Benzodiazepines Scrn U Cocaine Metab Screen U Cannabinoids Screen - Reports Microbiology: Microbiology 11/09/16 07:50 Cryptococcal Antigen - Final Serum Positive for Cryptococcus Ag 11/08/16 18:50 Urine Culture - Preliminary Urine,Clean Catch No Growth at 12 hours. - Diagnostic Findings Procedure: Chest x-ray: report reviewed by me (No consolidation)
[2016-11-09] MEDS: AMPHOTERICIN B IV SCH (19:57)
[2016-11-09] MEDS: DEXTROSE 5% IV SCH (19:57)
[2016-11-09] MEDS: ACETAMINOPHEN 325 MG TABLET PO PRN (23:24)
[2016-11-09] MEDS: diphenhydrAMINE CAP 25 MG CAPSULE PO PRN (23:25)
[2016-11-10] MEDS: LIDOCAINE 2% VISCOUS 100 ML BOTTLE SWISH/SWAL SCH ×4 (04:25→21:54)
[2016-11-10] MEDS ORDERED: AZITHROMYCIN 250 MG TABLET PO ONE (09:00)
[2016-11-10] MEDS: SULFAMETHOX/TRIMETHOPRIM 800-160 MG TABLET PO SCH (09:28)
[2016-11-10] MEDS: LISINOPRIL 20 MG TABLET PO SCH (09:28)
[2016-11-10] MEDS: NYSTATIN 500,000 UNIT/5 ML UDCUP SWISH/SWAL SCH ×4 (09:28→21:52)
[2016-11-10] MEDS: PANTOPRAZOLE 40 MG TABLET PO SCH (09:28)
--- NOTE | 2016-11-10 09:51 | Hospitalist Progress Note ---
Assessment and Plan (1) HIV (human immunodeficiency virus infection) Status: Chronic Assessment and plan: Associated hepatitis C with pancytopenia, recent hospitalization with positive blood culture for yeast. Ongoing substance abuse. Current Visit: No Hospitalist: Subjective Interval history: 55-year-old male HIV positive with active substance abuse was discharged from the hospital after brief stay for an abnormal chest x-ray. Changes were ultimately felt to be chronic with sputum culture positive for E. coli which was broadly sensitive. There was a late return on a blood culture which demonstrated yeast. Patient was a direct admission to the hospital for evaluation. Since admission the patient's cryptococcal antigen has been positive spinal tap is pending. His chest x-ray showed no infiltrates and blood and urine cultures at this time are negative. Patient's vital signs were stable overnight. Antibiotics have been discontinued and the patient is placed back on pneumocystis and MAC coverage. Exam - Constitutional Vitals: Period Temp Pulse Resp BP Sys/Valencia Pulse Ox Last 24 Hr 96.9 F-98.6 F 61-78 16-20 111-154/71-85 94-98 General appearance: normal weight - Respiratory Respiratory exam: Present: clear to auscultation bilaterally. Absent: rales, rhonchi, wheezes - Cardiovascular Cardiovascular exam: Present: regular rate and rhythm - GI/Abdominal GI/Abdominal exam: Present: normal bowel sounds - Neurological Exam Neurological exam: Present: alert, oriented X3 Results - Labs CBC & BMP: 11/09/16 06:44 11/09/16 06:44 Labs: Positive cryptococcal antigen
--- NOTE | 2016-11-10 11:41 | Infectious Disease Progress ---
Assessment and Plan (1) AIDS Status: Acute Assessment and plan: AIDS with profound immune suppression. Recommendations: Continue MAC and PCP prophylaxis. Antiretroviral therapy will be started when patient is seeing in the clinic. Further if he turns out to have TAPE RECORDING MACHINE OPERATOR cryptococcus infection then antiretroviral therapy initiation will have to be delayed due to risk of immune reconstitution inflammatory syndrome. Current Visit: Yes (2) Disseminated cryptococcosis Status: Acute Assessment and plan: Recommendations: 1. Lumbar puncture today to look for TAPE RECORDING MACHINE OPERATOR cryptococcal infection 2. Continue amphotericin B; patient informed that Rigor's are unexpected reaction to this medicine. Will be treated symptomatically. 3. Monitor electrolytes including magnesium on amphotericin Current Visit: Yes (3) Oral candidiasis Status: Acute Assessment and plan: Resolved Current Visit: No Infectious Disease - PN: Subj Interval history: Patient feeling okay today, he was found to have a reaction to amphotericin B last night with severe Rigors as it was stopped temporarily but restarted after he got Benadryl and Tylenol and he did okay. He has not had fever. No specific complaints today. Infectious Disease Exam (PN) - Constitutional Vitals: Temp Pulse Resp BP Pulse Ox 97.8 F 78 18 146/83 95 11/10/16 08:00 11/10/16 08:00 11/10/16 08:00 11/10/16 08:00 11/10/16 08:00 General appearance: normal weight Exam: General appearance: no acute distress - Eye Eye exam: Present: EOMI. no icterus Pupils: Present: MANI - ENT ENT exam: no oropharyhgeal exudates - Respiratory Respiratory exam: vesicular BS, no crepitations or wheezes - Cardiovascular Cardiovascular exam: regular rate and rhythm, no murmurs - GI/Abdominal GI/Abdominal exam: normal bowel sounds, soft, non-tender, no organomegaly or mass - Extremities Exam Extremities exam: no edema - Skin Skin exam: no rash Results - Labs CBC & BMP: 11/09/16 06:44 11/09/16 06:44 Lab Results: I have reviewed the past 24 hour labs
[2016-11-10 12:05] LABS: INR 1.1
[2016-11-10] MEDS: SODIUM CHLORIDE 0.9% 1,000 ML IV SCH ×2 (12:20→21:54)
[2016-11-10] MEDS ORDERED: SODIUM CHLORIDE 0.9% 250 ML IV PRN (15:21)
--- NOTE | 2016-11-10 15:24 | Event Note ---
IR is declined to do lumbar puncture with a platelet count less than 100,000. Patient's body weight is 53 kg with a platelet count this morning of 59,000; we will arrange for the patient to received a platelet pack anticipating approximally 50,000 rise in platelet count to be followed by a confirmed lumbar puncture 11/11
[2016-11-10] MEDS: AMPHOTERICIN B IV SCH (21:51)
[2016-11-10] MEDS: DEXTROSE 5% IV SCH (21:51)
[2016-11-10] MEDS: diphenhydrAMINE CAP 25 MG CAPSULE PO PRN (21:53)
[2016-11-10] MEDS: ACETAMINOPHEN 325 MG TABLET PO PRN (21:53)
[2016-11-11] MEDS: LIDOCAINE 2% VISCOUS 100 ML BOTTLE SWISH/SWAL SCH ×5 (04:41→22:00)
[2016-11-11] MEDS: SODIUM CHLORIDE 0.9% 1,000 ML IV SCH ×3 (05:26→21:03)
--- NOTE | 2016-11-11 07:02 | Hospitalist Progress Note ---
Assessment and Plan (1) HIV (human immunodeficiency virus infection) Status: Chronic Assessment and plan: Associated hepatitis C with pancytopenia, recent hospitalization with positive blood culture for yeast. Ongoing substance abuse. Positive cryptococcal antigen on blood draw. Current Visit: No Hospitalist: Subjective Interval history: 55-year-old male HIV positive with active substance abuse was recently discharged from the hospital after admission for an abnormal chest x-ray. His sputum did grow a broadly sensitive E. coli but was felt to the radiographic changes were mostly chronic. Subsequent to discharge the patient blood cultures returned positive for yeast and he was admitted from the infectious disease clinic. Subsequent to admission the patient has been initiated on amphotericin and addition has returned with a positive cryptococcal antigen on blood draw. Initial broad-spectrum antibiotics have been discontinued with resumption of his prophylaxis for pneumocystis and MAC. Patient is to have lumbar puncture performed regarding the potential for chronic cryptococcal meningitis. HAART has been withheld pending return of these results. Radiology has requested an increase in his platelet count before the procedure is performed. He does have a hepatitis C with pancytopenia. He is to receive 6 platelet packs today to be followed by his lumbar puncture. He states that he feels better he has no breathing complaints this morning. His vital signs are stable and he is afebrile. Exam - Constitutional Vitals: Period Temp Pulse Resp BP Sys/[place]encia Pulse Ox Last 24 Hr 96.5 F-98.6 F 76-95 18-18 122-150/70-84 93-95 General appearance: normal weight - Respiratory Respiratory exam: Present: clear to auscultation bilaterally. Absent: rales, rhonchi, wheezes - Cardiovascular Cardiovascular exam: Present: regular rate and rhythm. Absent: diastolic murmur - GI/Abdominal GI/Abdominal exam: Present: normal bowel sounds. Absent: tenderness - Extremities Exam Extremities exam: Absent: edema - Neurological Exam Neurological exam: Present: alert, oriented X3 Results - Labs CBC & BMP: 11/09/16 06:44 11/09/16 06:44
[2016-11-11 07:49] LABS: Calcium 6.9 MG/DL (8.5-10.1); Magnesium 1.3 MG/DL (1.8-2.4); Osmolality,Calculated 256.1 MOS/KG (273-304); Potassium 3.7 MMOL/L (3.5-5.1)
--- NOTE | 2016-11-11 14:00 | Post Interventional Procedure ---
Pre-op diagnosis: HIV Post-op diagnosis: same Procedure: LP w/ fluoro Flouroscopy: 29 sec Radiologist: Nathan Norwood Anesthesia: local Specimens: other (8 cc clear colorless CSF) Estimated blood loss: none Complications: none Condition: stable Description/Findings: OP 10 cm-water Assessment and Plan - Time spent with patient Time spent with patient: Less than 30 minutes
--- NOTE | 2016-11-11 14:21 | Interventional Radiology Rpt ---
IR lumbar puncture diagnostic Indication: HIV. Evaluate for cryptococcal meningitis. Lumbar puncture with fluoroscopy Description: Formal timeout was performed. Maximum sterile barrier technique used. The patient was placed prone on the fluoroscopy table. The low back was prepped and draped in a sterile fashion. A midline lumbar puncture was then performed at the L3-4 interspace using a 22-gauge spinal needle. Fluoroscopic guidance was used and a captured image documents the needle position. An opening pressure of 10 cm water was obtained. A cc clear, colorless CSF was withdrawn and sent to laboratory. Needle was removed and a bandage placed the puncture site. Fluoroscopy time: 29 seconds. Impression: Lumbar puncture as described. PROCEDURE INTERPRETED AT [facility] DEPARTMENT OF RADIOLOGY Final Report Signed by: Nathan Norwood M.D.
[2016-11-11 14:42] LABS: Appearance,CSF Clear; Neutrophils,CSF 100 %; Red Blood Cell,CSF 11 C/CUMM; White Blood Cell,CSF < 1 C/CUMM
[2016-11-11] MEDS: NYSTATIN 500,000 UNIT/5 ML UDCUP SWISH/SWAL SCH ×4 (15:09→20:53)
[2016-11-11] MEDS: SULFAMETHOX/TRIMETHOPRIM 800-160 MG TABLET PO SCH (16:44)
[2016-11-11] MEDS: PANTOPRAZOLE 40 MG TABLET PO SCH (16:45)
[2016-11-11] MEDS: LISINOPRIL 20 MG TABLET PO SCH (16:45)
--- NOTE | 2016-11-11 17:51 | Infectious Disease Progress ---
Assessment and Plan (1) AIDS Status: Acute Assessment and plan: AIDS with profound immune suppression. Complicated by HYDRATOR cryptococcus infection. This is a very complex case of multiple infections including also hepatitis B and hepatitis C. Recommendations: Continue MAC and PCP prophylaxis. Antiretroviral has to be held until about 2-4 weeks of therapy for cryptococcus to avoid immune reconstitution inflammatory syndrome. Prognosis guarded Current Visit: Yes (2) Disseminated cryptococcosis Status: Acute Assessment and plan: Recommendations: 1. Continue amphotericin B 2. Monitor electrolytes including magnesium on amphotericin Current Visit: Yes (3) Oral candidiasis Status: Acute Assessment and plan: No oral lesions but he has angular cheilitis which is likely from candidiasis. The amphotericin should take care of this. Current Visit: No Infectious Disease - PN: Subj Interval history: Patient is doing fair, just not happy about having to be in hospital. Denies headache. He has not had fever. He has an okay appetite no nausea vomiting or diarrhea. LP done today and the opening pressure was normal. Infectious Disease Exam (PN) - Constitutional Vitals: Temp Pulse Resp BP Pulse Ox 97.9 F 91 H 18 154/86 96 11/11/16 15:36 11/11/16 15:36 11/11/16 15:36 11/11/16 15:36 11/11/16 15:36 General appearance: normal weight Exam: General appearance: no acute distress - Eye Eye exam: Present: EOMI. no icterus Pupils: Present: MANI - ENT ENT exam: no oral exudates, mild irritation to cons of mouth - Respiratory Respiratory exam: vesicular BS, no crepitations or wheezes - Cardiovascular Cardiovascular exam: regular rate and rhythm, no murmurs - GI/Abdominal GI/Abdominal exam: normal bowel sounds, soft, non-tender, no organomegaly or mass - Extremities Exam Extremities exam: no edema - Skin Skin exam: no rash Results - Labs CBC & BMP: 11/11/16 10:43 11/11/16 06:13 Lab Results: I have reviewed the past 24 hour labs (CSF positive for cryptococcal antigen)
[2016-11-11] MEDS: diphenhydrAMINE CAP 25 MG CAPSULE PO PRN (20:53)
[2016-11-11] MEDS: ACETAMINOPHEN 325 MG TABLET PO PRN (20:53)
[2016-11-11] MEDS: AMPHOTERICIN B IV SCH (22:39)
[2016-11-11] MEDS: DEXTROSE 5% IV SCH (22:39)
[2016-11-12] MEDS: SODIUM CHLORIDE 0.9% 1,000 ML IV SCH (05:03)
[2016-11-12] MEDS: LIDOCAINE 2% VISCOUS 100 ML BOTTLE SWISH/SWAL SCH ×4 (05:03→22:00)
[2016-11-12 06:17] LABS: Calcium 7.1 MG/DL (8.5-10.1); Magnesium 1.3 MG/DL (1.8-2.4); Osmolality,Calculated 251.4 MOS/KG (273-304); Potassium 3.2 MMOL/L (3.5-5.1)
[2016-11-12] MEDS: LISINOPRIL 20 MG TABLET PO SCH (08:23)
[2016-11-12] MEDS: PANTOPRAZOLE 40 MG TABLET PO SCH (08:23)
[2016-11-12] MEDS: SULFAMETHOX/TRIMETHOPRIM 800-160 MG TABLET PO SCH (08:23)
[2016-11-12] MEDS: NYSTATIN 500,000 UNIT/5 ML UDCUP SWISH/SWAL SCH ×4 (08:23→20:12)
--- NOTE | 2016-11-12 12:43 | Infectious Disease Progress ---
Assessment and Plan (1) AIDS Status: Acute Assessment and plan: AIDS with profound immune suppression. Complicated by SUBWAY GUARD cryptococcus infection. Patient has multiple core infections including chronic hepatitis B and hepatitis C. Recommendations: Continue MAC and PCP prophylaxis. Antiretroviral has to be held until about 2-4 weeks of therapy for cryptococcus to avoid immune reconstitution inflammatory syndrome. Prognosis guarded Current Visit: Yes (2) Disseminated cryptococcosis Status: Acute Assessment and plan: Recommendations: 1. Continue amphotericin B 2. Monitor electrolytes including magnesium on amphotericin Current Visit: Yes (3) Oral candidiasis Status: Acute Assessment and plan: Resolved Current Visit: No Infectious Disease - PN: Subj Interval history: Doing okay, tolerating amphotericin. No specific complaints today, afebrile. Infectious Disease Exam (PN) - Constitutional Vitals: Temp Pulse Resp BP Pulse Ox 97.4 F L 88 19 132/74 96 11/12/16 11:54 11/12/16 11:54 11/12/16 11:54 11/12/16 11:54 11/12/16 11:54 General appearance: normal weight Exam: General appearance: no acute distress - Eye Eye exam: Present: EOMI. no icterus Pupils: Present: MANI - ENT ENT exam: no oral exudates, very poor dentition with several loose teeth - Respiratory Respiratory exam: vesicular BS, no crepitations or wheezes - Cardiovascular Cardiovascular exam: regular rate and rhythm, no murmurs - GI/Abdominal GI/Abdominal exam: normal bowel sounds, soft, non-tender, no organomegaly or mass - Extremities Exam Extremities exam: no edema - Skin Skin exam: no rash Results - Labs CBC & BMP: 11/11/16 10:43 11/12/16 04:35 Lab Results: I have reviewed the past 24 hour labs
[2016-11-12] MEDS: ACETAMINOPHEN 325 MG TABLET PO PRN (20:12)
[2016-11-12] MEDS: DEXTROSE 5% IV SCH (21:18)
[2016-11-12] MEDS: AMPHOTERICIN B IV SCH (21:18)
--- NOTE | 2016-11-12 21:31 | Hospitalist Progress Note ---
Assessment and Plan (1) Oral candidiasis Status: Acute Assessment and plan: Continue nystatin Current Visit: No (2) Elevated transaminase level Status: Acute Assessment and plan: Patient has chronic hepatitis B and hepatitis C Current Visit: No (3) AIDS Status: Acute Assessment and plan: He will follow as an outpatient infectious disease clinic Current Visit: Yes (4) Disseminated cryptococcosis Status: Acute Assessment and plan: He is on amphotericin B. Appreciate infectious disease following. Monitor potassium and replace as necessary. Current Visit: Yes Hospitalist: Subjective Interval history: 55-year-old male HIV positive with active substance abuse was recently discharged from the hospital after admission for an abnormal chest x-ray. His sputum did grow a broadly sensitive E. coli but was felt to the radiographic changes were mostly chronic. Subsequent to discharge the patient blood cultures returned positive for yeast and he was admitted from the infectious disease clinic. Subsequent to admission the patient has been initiated on amphotericin and addition has returned with a positive cryptococcal antigen on blood draw. Initial broad-spectrum antibiotics have been discontinued with resumption of his prophylaxis for pneumocystis and MAC. Exam - Constitutional Vitals: Period Temp Pulse Resp BP Sys/Valencia Pulse Ox Last 24 Hr 97.1 F-97.6 F 77-99 18-20 128-154/69-91 96-98 General appearance: no acute distress - Head Head exam: Present: normal inspection, normocephalic, atraumatic - Eye Eye exam: Present: EOMI Pupils: Present: MANI - ENT ENT exam: Present: normal exam - Neck Neck exam: Present: normal inspection - Respiratory Respiratory exam: Present: clear to auscultation bilaterally - Cardiovascular Cardiovascular exam: Present: regular rate and rhythm - GI/Abdominal GI/Abdominal exam: Present: normal bowel sounds - Extremities Exam Extremities exam: Present: normal inspection, normal capillary refill Results - Labs CBC & BMP: 11/11/16 10:43 11/12/16 04:35
[2016-11-13] MEDS: POTASSIUM CHLORIDE 20 MEQ TABLET PO PRN ×4 (02:00→08:09)
[2016-11-13] MEDS: SODIUM CHLORIDE 0.9% 1,000 ML IV SCH ×2 (02:08→05:06)
[2016-11-13] MEDS: LIDOCAINE 2% VISCOUS 100 ML BOTTLE SWISH/SWAL SCH ×4 (05:05→21:01)
[2016-11-13 06:19] LABS: Calcium 7.3 MG/DL (8.5-10.1); Magnesium 1.3 MG/DL (1.8-2.4); Osmolality,Calculated 254.1 MOS/KG (273-304); Potassium 3.2 MMOL/L (3.5-5.1)
[2016-11-13] MEDS: NYSTATIN 500,000 UNIT/5 ML UDCUP SWISH/SWAL SCH ×4 (08:08→21:00)
[2016-11-13] MEDS: SULFAMETHOX/TRIMETHOPRIM 800-160 MG TABLET PO SCH (08:08)
[2016-11-13] MEDS: PANTOPRAZOLE 40 MG TABLET PO SCH (08:08)
[2016-11-13] MEDS: LISINOPRIL 20 MG TABLET PO SCH (08:08)
[2016-11-13] MEDS: POTASSIUM CHLORIDE 20 MEQ TABLET PO SCH ×2 (11:03→20:59)
[2016-11-13] MEDS: MAGNESIUM OXIDE 400 MG TABLET PO SCH ×2 (11:08→21:00)
--- NOTE | 2016-11-13 11:12 | Hospitalist Progress Note ---
Assessment and Plan (1) Thrombocytopenia Status: Acute Assessment and plan: Platelet count was noted at 54 at the time of admission. No obvious signs of bleeding noted. Will monitor carefully. 11/13-platelet count noted at 83. We will recheck CBC in a.m. Current Visit: Yes (2) Leukopenia Status: Acute Current Visit: Yes (3) Leukopenia Status: Acute Assessment and plan: WBCs are noted at 1.1. We will start neutropenic precautions. Will recheck labs in a.m. Infectious disease consultation requested. Current Visit: Yes (4) AIDS Status: Acute Assessment and plan: We will continue MAC and PCP prophylaxis per ID recommendations. We will continue to hold antiretrovirals per ID recommendation. We appreciate input and assistance with the management of the patient and the clinical encounter. Current Visit: Yes (5) Disseminated cryptococcosis Status: Acute Assessment and plan: We will continue amphotericin B as previously ordered. We will recheck CMP in a.m. Current Visit: Yes Hospitalist: Subjective Interval history: Patient seen and examined; chart reviewed. No significant overnight events reported per staff. Exam - Constitutional Vitals: Period Temp Pulse Resp BP Sys/Valencia Pulse Ox Last 24 Hr 96.6 F-97.4 F 73-88 13-19 126-154/68-92 94-98 General appearance: no acute distress, cachectic - Head Head exam: Present: normal inspection, normocephalic, atraumatic - Eye Eye exam: Present: EOMI. Absent: conjunctival injection Pupils: Present: MANI, normal accommodation - ENT ENT exam: Present: normal exam, normal external ear exam, normal oropharynx - Neck Neck exam: Present: normal inspection. Absent: lymphadenopathy, meningismus, thyromegaly - Respiratory Respiratory exam: Present: clear to auscultation bilaterally. Absent: rales, rhonchi, stridor, wheezes - Cardiovascular Cardiovascular exam: Present: regular rate and rhythm. Absent: carotid bruit, diastolic murmur, gallop, JVD, rubs, systolic murmur - GI/Abdominal GI/Abdominal exam: Present: normal bowel sounds, soft - Extremities Exam Extremities exam: Present: normal inspection, normal capillary refill. Absent: edema - Back Exam Back exam: Present: normal inspection - Neurological Exam Neurological exam: Present: alert, oriented X3, CN II-XII intact - Psychiatric Psychiatric exam: Present: flat affect - Skin Skin exam: Present: normal color, warm, dry Results - Labs CBC & BMP: 11/11/16 10:43 11/13/16 05:20 Lab Results: I have reviewed the past 24 hour labs
[2016-11-13 11:49] LABS: Basophils % 0.6 % (0.0-0.8); Eosinophils % 2.5 % (0.00-10.9); Immature Granulocytes % 3.8 %; Immature Granulocytes Absolute 0.06 #; Lymphocytes # 0.3 10*3/uL (1.4-4.0); Mean Corpuscular Hemoglobin 31 PG (27-34); Mean Corpuscular Volume 87.1 FL (87-102); Mean Platelet Volume 12.3 FL (9.6-12.0); Monocytes # 0.2 10*3/uL (0.11-0.8); Monocytes % 10.8 % (1.7-12.7); Neutrophils % 63.3 % (38.7-73.9); Platelet Count 52 T/CUMM (130-400); Red Blood Count 2.87 MC/CUMM (3.8-5.5); Red Cell Distribution Width 15.9 % (9.3-17.3); White Blood Count 1.6 T/CUMM (4-12)
[2016-11-13 12:29] LABS: Eosinophils 1 % (0-10); Hypochromasia 1+; Lymphocytes 24 % (20-55); Microcytosis 1+; Platelet Estimate Decreased; Segmented Neutrophils 68 % (50-85); Total Cells Counted 100
[2016-11-13 12:30] LABS: Ovalocytes Slight
[2016-11-13] MEDS: POTASSIUM CHLORIDE INJ 20 MEQ, MAGNESIUM SULF INJ 2 GM in SODIUM CHLORIDE 0.45% 1,000 ML IV SCH (14:48)
--- NOTE | 2016-11-13 19:04 | Ultrasound Report ---
Exam: US venous doppler UE LT Date: 11/13/2016 5:19 PM Indication: Left upper extremity pain left-sided PICC line present. Comparison: None Findings: Grayscale color flow Doppler duplex imaging was performed with spectral waveform analysis the with real-time ultrasound imaging with image stored and captured. Left internal jugular, subclavian, axillary, brachial, basilic veins are patent with normal augmentation and compression. A PICC line is present from basilic vein approach. There is chronic thrombus suspected in the left cephalic vein. Impression: 1. 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 No acute DVT clearly demonstrated 2. PICC line in place with no obvious thrombus present around the PICC line at this time. PROCEDURE INTERPRETED AT [facility] DEPARTMENT OF RADIOLOGY Final Report Signed by: Dr. Eddie Duque
[2016-11-13] MEDS: DEXTROSE 5% IV SCH (21:00)
[2016-11-13] MEDS: AMPHOTERICIN B IV SCH (21:00)
[2016-11-14] MEDS: POTASSIUM CHLORIDE INJ 20 MEQ, MAGNESIUM SULF INJ 2 GM in SODIUM CHLORIDE 0.45% 1,000 ML IV SCH ×3 (00:20→15:37)
[2016-11-14] MEDS: LIDOCAINE 2% VISCOUS 100 ML BOTTLE SWISH/SWAL SCH ×4 (03:09→21:10)
[2016-11-14 05:20] LABS: Basophils % 0.5 % (0.0-0.8); Eosinophils # 0.1 10*3/uL (0.0-0.87); Eosinophils % 3.8 % (0.00-10.9); Hematocrit 24.7 VOL% (42.0-52.0); Hemoglobin 8.6 GM/DL (14.0-18.0); Immature Granulocytes % 3.8 %; Immature Granulocytes Absolute 0.07 #; Lymphocytes # 0.2 10*3/uL (1.4-4.0); Mean Corpuscular HGB Conc 34.8 GM/DL (32-36); Mean Corpuscular Hemoglobin 31 PG (27-34); Mean Corpuscular Volume 87.6 FL (87-102); Monocytes # 0.2 10*3/uL (0.11-0.8); Monocytes % 8.2 % (1.7-12.7); Neutrophils # 1.3 10*3/uL (1.4-7.4); Neutrophils % 71.7 % (38.7-73.9); Red Blood Count 2.82 MC/CUMM (3.8-5.5); Red Cell Distribution Width 16.4 % (9.3-17.3); White Blood Count 1.8 T/CUMM (4-12)
[2016-11-14 05:22] LABS: Platelet Count 45 T/CUMM (130-400)
[2016-11-14 05:57] LABS: Albumin 1.9 G/DL (3.4-5.0); Bilirubin,Total 0.7 MG/DL (0.2-1.0); Calcium 7.6 MG/DL (8.5-10.1); Magnesium 1.6 MG/DL (1.8-2.4); Osmolality,Calculated 255.9 MOS/KG (273-304); Phosphorous 2.9 MG/DL (2.5-4.9); Total Protein 5.5 G/DL (6.4-8.3)
[2016-11-14 06:23] LABS: Band Neutrophils 3 % (0-10); Eosinophils 3 % (0-10); Hypochromasia 2+; Lymphocytes 13 % (20-55); Platelet Estimate Decreased; Segmented Neutrophils 73 % (50-85); Total Cells Counted 102
[2016-11-14] MEDS: PANTOPRAZOLE 40 MG TABLET PO SCH (08:12)
[2016-11-14] MEDS: POTASSIUM CHLORIDE 20 MEQ TABLET PO SCH ×2 (08:13→21:11)
[2016-11-14] MEDS: SULFAMETHOX/TRIMETHOPRIM 800-160 MG TABLET PO SCH (08:13)
[2016-11-14] MEDS: LISINOPRIL 20 MG TABLET PO SCH (08:13)
[2016-11-14] MEDS: NYSTATIN 500,000 UNIT/5 ML UDCUP SWISH/SWAL SCH ×4 (08:14→21:10)
[2016-11-14] MEDS: MAGNESIUM OXIDE 400 MG TABLET PO SCH ×2 (08:14→21:09)
--- NOTE | 2016-11-14 10:03 | Hospitalist Progress Note ---
Assessment and Plan (1) Thrombocytopenia Status: Acute Assessment and plan: Platelet count was noted at 54 at the time of admission. No obvious signs of bleeding noted. Will monitor carefully. 15-platelet count noted at 52. We will recheck CBC in a.m. 16-platelet count noted at 45; will recheck CBC in a.m. No obvious signs or symptoms of bleeding noted. Current Visit: Yes (2) Leukopenia Status: Acute Assessment and plan: White blood cell count noted at 1.8; up from 1.6 on yesterday. Neutropenic precautions in progress. Current Visit: Yes (3) Leukopenia Status: Acute Assessment and plan: WBCs are noted at 1.1. We will start neutropenic precautions. Will recheck labs in a.m. Infectious disease consultation requested. Current Visit: Yes (4) AIDS Status: Acute Assessment and plan: We will continue MAC and PCP prophylaxis per ID recommendations. We will continue to hold antiretrovirals per ID recommendation. We appreciate input and assistance with the management of the patient and the clinical encounter. Current Visit: Yes (5) Disseminated cryptococcosis Status: Acute Assessment and plan: We will continue amphotericin B as previously ordered. We will recheck CMP in a.m. Current Visit: Yes Hospitalist: Subjective Interval history: Patient seen and examined; chart reviewed. Staff reported an onset of acute pain in the left arm on yesterday afternoon. Venous Doppler of the left upper extremity reported a chronic thrombus in the left cephalic vein however the PICC line was in place with no obvious thrombus present around the PICC line at this time. Exam - Constitutional Vitals: Period Temp Pulse Resp BP Sys/Valencia Pulse Ox Last 24 Hr 96.6 F-97.2 F 73-85 16-20 127-143/70-82 95-98 General appearance: under weight - Head Head exam: Present: normal inspection, normocephalic - Eye Eye exam: Present: EOMI. Absent: conjunctival injection Pupils: Present: MANI, normal accommodation - ENT ENT exam: Present: normal exam, normal external ear exam, normal oropharynx - Neck Neck exam: Present: normal inspection. Absent: lymphadenopathy, meningismus, tenderness, thyromegaly - Respiratory Respiratory exam: Present: clear to auscultation bilaterally. Absent: rales, rhonchi, stridor, wheezes - Cardiovascular Cardiovascular exam: Present: regular rate and rhythm. Absent: carotid bruit, diastolic murmur, gallop, JVD, rubs, systolic murmur - GI/Abdominal GI/Abdominal exam: Present: normal bowel sounds, soft. Absent: tenderness - Extremities Exam Extremities exam: Present: normal inspection, normal capillary refill, full ROM , edema - Back Exam Back exam: Present: normal inspection - Neurological Exam Neurological exam: Present: alert, oriented X3, CN II-XII intact - Psychiatric Psychiatric exam: Present: normal affect, normal mood - Skin Skin exam: Present: normal color, warm, dry Results - Labs CBC & BMP: 11/14/16 05:15 11/14/16 05:15 Lab Results: I have reviewed the past 24 hour labs
[2016-11-14] MEDS ORDERED: SALIVA SUBSTITUTE SPRAY 60 ML CAN SWISH/SPIT PRN (11:31)
[2016-11-14] MEDS ORDERED: LIDOCAINE 2% VISCOUS 100 ML BOTTLE SWISH/SPIT PRN (11:32)
[2016-11-14] MEDS: AMPHOTERICIN B IV SCH (19:36)
[2016-11-14] MEDS: DEXTROSE 5% IV SCH (19:36)
[2016-11-15] MEDS: POTASSIUM CHLORIDE INJ 20 MEQ, MAGNESIUM SULF INJ 2 GM in SODIUM CHLORIDE 0.45% 1,000 ML IV SCH ×2 (01:34→13:58)
[2016-11-15] MEDS: LIDOCAINE 2% VISCOUS 100 ML BOTTLE SWISH/SWAL SCH ×3 (03:17→15:14)
[2016-11-15 06:26] LABS: Basophils % 0.6 % (0.0-0.8); Eosinophils # 0.1 10*3/uL (0.0-0.87); Eosinophils % 4.7 % (0.00-10.9); Hematocrit 24.1 VOL% (42.0-52.0); Hemoglobin 8.7 GM/DL (14.0-18.0); Immature Granulocytes % 4.1 %; Immature Granulocytes Absolute 0.07 #; Lymphocytes # 0.3 10*3/uL (1.4-4.0); Lymphocytes % 19.8 % (21.2-54.2); Mean Corpuscular HGB Conc 36.1 GM/DL (32-36); Mean Corpuscular Hemoglobin 31 PG (27-34); Mean Corpuscular Volume 86.1 FL (87-102); Monocytes # 0.2 10*3/uL (0.11-0.8); Monocytes % 12.8 % (1.7-12.7); Red Cell Distribution Width 15.8 % (9.3-17.3); White Blood Count 1.7 T/CUMM (4-12)
[2016-11-15 06:50] LABS: Platelet Count 38 T/CUMM (130-400)
[2016-11-15 06:57] LABS: Calcium 7.4 MG/DL (8.5-10.1); Osmolality,Calculated 246.6 MOS/KG (273-304); Potassium 4.7 MMOL/L (3.5-5.1)
[2016-11-15 07:18] LABS: Calcium 7.1 MG/DL (8.5-10.1); Magnesium 2.4 MG/DL (1.8-2.4); Osmolality,Calculated 243.8 MOS/KG (273-304); Potassium 4.9 MMOL/L (3.5-5.1)
[2016-11-15 07:38] LABS: Band Neutrophils 2 % (0-10); Eosinophils 5 % (0-10); Hypochromasia 1+; Lymphocytes 10 % (20-55); Ovalocytes Slight; Platelet Estimate Decreased; Segmented Neutrophils 66 % (50-85); Total Cells Counted 100
[2016-11-15 07:39] LABS: Giant Platelets Few; Microcytosis Slight
[2016-11-15] MEDS: NYSTATIN 500,000 UNIT/5 ML UDCUP SWISH/SWAL SCH ×2 (08:43→13:57)
[2016-11-15] MEDS: LISINOPRIL 20 MG TABLET PO SCH (08:45)
[2016-11-15] MEDS: MAGNESIUM OXIDE 400 MG TABLET PO SCH (08:45)
[2016-11-15] MEDS: PANTOPRAZOLE 40 MG TABLET PO SCH (08:45)
[2016-11-15] MEDS: SULFAMETHOX/TRIMETHOPRIM 800-160 MG TABLET PO SCH (08:45)
[2016-11-15] MEDS: POTASSIUM CHLORIDE 20 MEQ TABLET PO SCH (08:45)
--- NOTE | 2016-11-15 09:21 | Hospitalist Progress Note ---
Assessment and Plan (1) AIDS Status: Acute Assessment and plan: Infectious disease following. Prognosis is guarded. CD4 count is 11. On Bactrim for PCP prophylaxis and Azithromycin 1200 mg weekly for MAC prophylaxis. Patient is immunosuppressed. He has fungal/jeff bacteremia and disseminated cryptococcus which she is currently on amphotericin. Will monitor Current Visit: Yes (2) Bacteremia Status: Acute Assessment and plan: Fungal/yeast bacteremia on amphotericin Current Visit: Yes (3) Disseminated cryptococcosis Status: Acute Assessment and plan: On amphotericin; monitor labs; ID following Current Visit: Yes (4) Oral candidiasis Status: Acute Assessment and plan: Continue nystatin, oral candidiasis improved/resolved Current Visit: No (5) Pancytopenia Status: Acute Assessment and plan: Platelet count is not on 38. Patient is on neutropenic precautions. will continue to monitor. Current Visit: No Hospitalist: Subjective Interval history: Mr. Braun is a 55-year-old male with AIDS that was admitted for focal bacteremia and oral candidiasis. 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 Patient also has pancytopenia. Patient reports feeling better today. He reports his mouth hurting was his biggest complaint and that is much better. No new issues overnight. Exam - Constitutional Vitals: Period Temp Pulse Resp BP Sys/Valencia Pulse Ox Last 24 Hr 97.0 F-97.9 F 77-96 18-20 127-145/76-91 96-99 General appearance: normal weight, no acute distress, other (ill appearing) - Head Head exam: Present: normal inspection - Eye Eye exam: Present: EOMI - ENT ENT exam: Present: other (erythema of mouth mucose; lesion about left upper lip) - Neck Neck exam: Present: normal inspection - Respiratory Respiratory exam: Present: clear to auscultation bilaterally - Cardiovascular Cardiovascular exam: Present: regular rate and rhythm - GI/Abdominal GI/Abdominal exam: Present: normal bowel sounds, soft. Absent: tenderness - Extremities Exam Extremities exam: Absent: edema - Neurological Exam Neurological exam: Present: alert, oriented X3 - Skin Skin exam: Present: normal color, dry Results - Labs CBC & BMP: 11/15/16 05:55 11/15/16 05:55
[2016-11-15 11:01] VITALS: BP 143/89
--- NOTE | 2016-11-15 12:32 | Discharge Summary ---
Diagnosis - Discharge Diagnosis (1) AIDS Status: Acute (2) Bacteremia Status: Acute (3) Disseminated cryptococcosis Status: Acute (4) Oral candidiasis Status: Acute (5) Pancytopenia Status: Acute Discharge Plan - Discharge Data Disposition: Disch/Xfer-Ip Rehab Fac Condition at Discharge: Guarded Discharge Diet: low salt diet Activity: resume usual activities as tolerated Hygiene: no restrictions Weight Bearing at Discharge: full weight bearing Driving: no restrictions Contact your physician if you experience:: fever over 101, Nausea/Vomiting - Discharge Medications New Azithromycin 1,200 mg PO Q7DAY #4 tablet diphenhydrAMINE CAP [Benadryl Cap] 25 mg PO Q6H PRN capsule PRN Reason: Itching Magnesium Oxide 400 mg PO BID tablet Ondansetron Inj [Zofran Inj] 4 mg IV Q4H PRN vial PRN Reason: Nausea Pantoprazole Tab [Protonix Tab] 40 mg PO DAILY tablet Saliva Substitute Anderson [Mouthkote Anderson] 3 spray SWISH/SPIT PRN PRN PRN Reason: Mouth Irritation Acetaminophen Tab [Tylenol Tab] 650 mg PO Q4H PRN tablet PRN Reason: Fever, Headache, Mild Pain Amphotericin B [Fungizone] 37 mg IV Q24H vial Lidocaine 2% Viscous [Xylocaine 2% Viscous] 15 ml SWISH/SPIT Q4H PRN ml PRN Reason: Mouth Irritation Sulfameth/Trimeth 800-160 Tab [Bactrim DS Tab] 1 tablet PO DAILY tablet Continue HYDROcodone/ACETAMIN 10-325 [[place] 10-325] 1 tablet PO Q4H PRN #30 tablet PRN Reason: Pain Moderate (4-7) Lidocaine 2% Viscous [Xylocaine 2% Viscous] 15 ml SWISH/SWAL Q6H #60 ml Nystatin [Nystatin Oral Susp] 200,000 unit SWISH/SWAL QID #60 ml Sulfameth/Trimeth 800-160 Tab [Bactrim DS Tab] 1 tablet PO DAILY #30 tablet Lisinopril 10 mg PO DAILY #30 tablet Discontinued Fluconazole Tab [Diflucan Tab] 100 mg PO DAILY #5 tablet - Follow Up or Referral Follow Up: Maxine Carrion MD [Physician] - 2 Weeks - Forms/Instructions Exam - Constitutional Vitals: Period Temp Pulse Resp BP Sys/Valencia Pulse Ox Last 24 Hr 97.0 F-97.9 F 77-85 18-20 127-145/70-91 96-99 Discharge Results Procedures and tests throughout hospitalization: Pending Orders 11/08/16 18:16 Drug Screen Prescrip/OTC Urine Stat 11/11/16 AFB Culture/Smears Routine CSF Culture and Gram Stain Routine 11/16/16 04:00 Comp Blood Count Auto Diff IN AM Comprehensive Metabolic Panel IN AM Labs on day of discharge: Labs from last 24 hours 11/15/16 11/15/16 11/15/16 05:55 05:55 05:55 WBC 1.7 L RBC 2.80 L Hgb 8.7 L Hct 24.1 L MCV 86.1 L MCH 31 MCHC 36.1 H RDW 15.8 Plt Count 38 L* Neut % (Auto) 58.0 Lymph % (Auto) 19.8 L [place] % (Auto) 12.8 H Eos % (Auto) 4.7 Baso % (Auto) 0.6 Neut # (Auto) 1.0 L Lymph # (Auto) 0.3 L [place] # (Auto) 0.2 Eos # (Auto) 0.1 Baso # (Auto) 0.0 Total Counted 100 Immature Gran % 4.1 Nucleated RBC % 0.0 Immature Gran # 0.07 Segmented Neutrophils 66 Band Neutrophils 2 Lymphocytes 10 L Monocytes 17 H Eosinophils 5 Nucleated RBCs # 0.00 Platelet Estimate Decreased Giant Platelets Few Hypochromasia 1+ Microcytosis Slight Ovalocytes Slight Morphology Comment Sodium 124 L 123 L Potassium 4.7 4.9 Chloride 95 L 94 L Carbon Dioxide 21 21 Anion Gap 12.7 12.9 BUN 7 7 Creatinine 0.60 L 0.60 L GFR Calculation 103 103 BUN/Creatinine Ratio 11.00 11.00 Glucose 90 88 Calculated Osmolality 246.6 L 243.8 L Calcium 7.4 L 7.1 L Magnesium 2.4 Preliminary micro results at discharge 11/11/16 Unknown CSF Culture - Preliminary Cerebral Spinal Fluid Yeast DS: Provider Date of admission: 11/08/16 13:00 Primary care physician: Jeffry Scales MD Attending physician on admission: Robert Roman MD Consults: 11/08/16 13:15 Consult to Case Mgmt/Social Srvs [CONS] Routine Reason for Case Mgmt/Social Srvs: Discharge Planning 11/08/16 17:59 Consult to Case Mgmt/Social Srvs [CONS] Routine Reason for Case Mgmt/Social Srvs: Rehab Other Consult to Physician [CONS] Routine Comment: Consulting Provider: Maxine Carrion When should Consulting Provider be notified: Now Person Notified: BRIGITTE Date Notified: 11/09/16 Time Notified: 10:03 Consult Notification Comment: 11/08/16 18:25 Consult to Dietitian [CONS] Routine Reason for Dietitian: Other 11/12/16 14:06 Consult to Case Mgmt/Social Srvs [CONS] Routine Reason for Case Mgmt/Social Srvs: Other Consult Comment: SPECILTY TRANSFER FOR ANTIBIOTIC Discharging clinician: Addy Rojas MD Expected date of discharge: 11/15/16
--- NOTE | 2016-11-15 12:36 | Discharge Summary ---
Diagnosis - Discharge Diagnosis (1) AIDS Status: Acute (2) Bacteremia Status: Acute (3) Disseminated cryptococcosis Status: Acute (4) Oral candidiasis Status: Acute (5) Pancytopenia Status: Acute Specialty Discharge - Follow Up or Referrals Follow up with: Maxine Carrion MD [Physician] - 2 Weeks Discharge Plan - Discharge Data Disposition: Disch/Xfer-Ip Rehab Fac - Discharge Medications New Azithromycin 1,200 mg PO Q7DAY #4 tablet diphenhydrAMINE CAP [Benadryl Cap] 25 mg PO Q6H PRN capsule PRN Reason: Itching Magnesium Oxide 400 mg PO BID tablet Ondansetron Inj [Zofran Inj] 4 mg IV Q4H PRN vial PRN Reason: Nausea Pantoprazole Tab [Protonix Tab] 40 mg PO DAILY tablet Saliva Substitute Strang [Mouthkote Strang] 3 spray SWISH/SPIT PRN PRN PRN Reason: Mouth Irritation Acetaminophen Tab [Tylenol Tab] 650 mg PO Q4H PRN tablet PRN Reason: Fever, Headache, Mild Pain Amphotericin B [Fungizone] 37 mg IV Q24H vial Lidocaine 2% Viscous [Xylocaine 2% Viscous] 15 ml SWISH/SPIT Q4H PRN ml PRN Reason: Mouth Irritation Sulfameth/Trimeth 800-160 Tab [Bactrim DS Tab] 1 tablet PO DAILY tablet Continue HYDROcodone/ACETAMIN 10-325 [[place] 10-325] 1 tablet PO Q4H PRN #30 tablet PRN Reason: Pain Moderate (4-7) Lidocaine 2% Viscous [Xylocaine 2% Viscous] 15 ml SWISH/SWAL Q6H #60 ml Nystatin [Nystatin Oral Susp] 200,000 unit SWISH/SWAL QID #60 ml Sulfameth/Trimeth 800-160 Tab [Bactrim DS Tab] 1 tablet PO DAILY #30 tablet Lisinopril 10 mg PO DAILY #30 tablet Discontinued Fluconazole Tab [Diflucan Tab] 100 mg PO DAILY #5 tablet - Follow Up or Referral Follow Up: Maxine Carrion MD [Physician] - 2 Weeks - Forms/Instructions Exam - Constitutional Vitals: Period Temp Pulse Resp BP Sys/Valencia Pulse Ox Last 24 Hr 97.0 F-97.9 F 77-85 18-20 127-145/70-91 96-99 Discharge Results Procedures and tests throughout hospitalization: Pending Orders 11/08/16 18:16 Drug Screen Prescrip/OTC Urine Stat 11/11/16 AFB Culture/Smears Routine CSF Culture and Gram Stain Routine 11/16/16 04:00 Comp Blood Count Auto Diff IN AM Comprehensive Metabolic Panel IN AM Labs on day of discharge: Labs from last 24 hours 11/15/16 11/15/16 11/15/16 05:55 05:55 05:55 WBC 1.7 L RBC 2.80 L Hgb 8.7 L Hct 24.1 L MCV 86.1 L MCH 31 MCHC 36.1 H RDW 15.8 Plt Count 38 L* Neut % (Auto) 58.0 Lymph % (Auto) 19.8 L [place] % (Auto) 12.8 H Eos % (Auto) 4.7 Baso % (Auto) 0.6 Neut # (Auto) 1.0 L Lymph # (Auto) 0.3 L [place] # (Auto) 0.2 Eos # (Auto) 0.1 Baso # (Auto) 0.0 Total Counted 100 Immature Gran % 4.1 Nucleated RBC % 0.0 Immature Gran # 0.07 Segmented Neutrophils 66 Band Neutrophils 2 Lymphocytes 10 L Monocytes 17 H Eosinophils 5 Nucleated RBCs # 0.00 Platelet Estimate Decreased Giant Platelets Few Hypochromasia 1+ Microcytosis Slight Ovalocytes Slight Morphology Comment Sodium 124 L 123 L Potassium 4.7 4.9 Chloride 95 L 94 L Carbon Dioxide 21 21 Anion Gap 12.7 12.9 BUN 7 7 Creatinine 0.60 L 0.60 L GFR Calculation 103 103 BUN/Creatinine Ratio 11.00 11.00 Glucose 90 88 Calculated Osmolality 246.6 L 243.8 L Calcium 7.4 L 7.1 L Magnesium 2.4 Preliminary micro results at discharge 11/11/16 Unknown CSF Culture - Preliminary Cerebral Spinal Fluid Yeast DS: Provider Date of admission: 11/08/16 13:00 Primary care physician: Jeffry Scales MD Attending physician on admission: Robert Roman MD Consults: 11/08/16 13:15 Consult to Case Mgmt/Social Srvs [CONS] Routine Reason for Case Mgmt/Social Srvs: Discharge Planning 11/08/16 17:59 Consult to Case Mgmt/Social Srvs [CONS] Routine Reason for Case Mgmt/Social Srvs: Rehab Other Consult to Physician [CONS] Routine Comment: Consulting Provider: Maxine Carrion When should Consulting Provider be notified: Now Person Notified: BRIGITTE Date Notified: 11/09/16 Time Notified: 10:03 Consult Notification Comment: 11/08/16 18:25 Consult to Dietitian [CONS] Routine Reason for Dietitian: Other 11/12/16 14:06 Consult to Case Mgmt/Social Srvs [CONS] Routine Reason for Case Mgmt/Social Srvs: Other Consult Comment: SPECILTY TRANSFER FOR ANTIBIOTIC Discharging clinician: Addy Rojas MD
--- NOTE | 2016-11-15 13:19 | Infectious Disease Progress ---
Assessment and Plan (1) AIDS Status: Acute Assessment and plan: AIDS with profound immune suppression. Complicated by [employer]ELOPER cryptococcus infection. Patient has multiple co-infections including chronic hepatitis B and hepatitis C. Recommendations: Continue MAC and PCP prophylaxis. Antiretroviral has to be held until about 2-4 weeks of therapy for cryptococcus to avoid immune reconstitution inflammatory syndrome. Prognosis guarded Current Visit: Yes (2) Disseminated cryptococcosis Status: Acute Assessment and plan: Recommendations: 1. Continue amphotericin B 2. 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 He will continue with amphotericin B for at least 2 weeks. He has been accepted to specialty and should be transferred there today. Will follow him there. Current Visit: Yes Infectious Disease - PN: Subj Interval history: Patient doing relatively okay but anxious to go home, does not like the idea of being here. Has not fever. Tolerating amphotericin without any major difficulties. Eating well, no nausea vomiting or diarrhea. Infectious Disease Exam (PN) - Constitutional Vitals: Temp Pulse Resp BP Pulse Ox 97.9 F 83 18 143/89 98 11/15/16 11:00 11/15/16 11:00 11/15/16 11:00 11/15/16 11:00 11/15/16 11:00 General appearance: normal weight, no acute distress, other (ill appearing) Exam: General appearance: no acute distress - Eye Eye exam: Present: EOMI. no icterus Pupils: Present: MANI - ENT ENT exam: Resolved oral exudates, very poor dentition with several loose teeth - Respiratory Respiratory exam: vesicular BS, no crepitations or wheezes - Cardiovascular Cardiovascular exam: regular rate and rhythm, no murmurs - GI/Abdominal GI/Abdominal exam: normal bowel sounds, soft, non-tender, no organomegaly or mass - Extremities Exam Extremities exam: no edema - Skin Skin exam: no rash Results - Labs CBC & BMP: 11/15/16 05:55 11/15/16 05:55 Lab Results: I have reviewed the past 24 hour labs (CSF culture positive for yeast) Specialty Discharge - Follow Up or Referrals Follow up with: Maxine Crarion MD [Physician] - 2 Weeks
== END 2016-11-15 15:22 | DRG 975 ==
LOC: SUATTDRO 13:00 → N.5E 17:12
PROVIDERS: ADMIT Internal Medicine; ATTEND Family Medicine